=== PATIENT | female | born 1965 ===

== ENCOUNTER 2021-03-15 09:00 | Outpatient (REF) | payer OTHER, SELFPAY ==
--- NOTE | ~2021-03-15 | XR_ITS ---
EXAMINATION: CR X-RAY KNEE STANDING BILATERAL, RIGHT KNEE 2 VIEW CLINICAL INFORMATION: Knee pain. COMPARISON: None TECHNIQUE: Bilateral weightbearing AP views of the knee is as well as 2 views of the right knee were obtained. FINDINGS: Mild tricompartmental degenerative joint changes are seen in the right knee. There is no significant joint effusion. Similar mild degenerative joint changes are seen in the femoral tibial joints of the left knee. There is no acute fracture or dislocation. The soft tissues are unremarkable. XR/XR knee RT 2V IMPRESSION: Mild degenerative joint changes bilaterally suggesting osteoarthritis.
--- NOTE | ~2021-03-15 | XR_ITS ---
EXAMINATION: CR X-RAY KNEE STANDING BILATERAL, RIGHT KNEE 2 VIEW CLINICAL INFORMATION: Knee pain. COMPARISON: None TECHNIQUE: Bilateral weightbearing AP views of the knee is as well as 2 views of the right knee were obtained. FINDINGS: Mild tricompartmental degenerative joint changes are seen in the right knee. There is no significant joint effusion. Similar mild degenerative joint changes are seen in the femoral tibial joints of the left knee. There is no acute fracture or dislocation. The soft tissues are unremarkable. XR/XR knee standing BI IMPRESSION: Mild degenerative joint changes bilaterally suggesting osteoarthritis.
== END 2021-03-15 09:01 | disposition home or self-care (01) ==
LOC: HO.HOSX 09:00
PROVIDERS: Visit Provider Orthopaedic Surgery
DX: M17.0 Bilateral primary osteoarthritis of knee (principal); M21.062 Valgus deformity, not elsewhere classified, left knee; E66.9 Obesity, unspecified
CPT/HCPCS: 73560; 73565; 99202

== ENCOUNTER → 2021-06-20 08:12 | Outpatient (BNVA) | payer OTHER, SELFPAY | PROVIDERS: Visit Provider Orthopaedic Surgery | DX: M17.11 Unilateral primary osteoarthritis, right knee (principal) | CPT/HCPCS: 99212 ==

== ENCOUNTER → 2021-08-12 08:58 | Outpatient (BNVA) | payer OTHER, SELFPAY | PROVIDERS: Visit Provider Orthopaedic Surgery ==

== ENCOUNTER → 2021-09-12 13:47 | Outpatient (BNVA) | payer OTHER, SELFPAY | PROVIDERS: PCP Internal Medicine; Visit Provider Physician Assistant | DX: M17.11 Unilateral primary osteoarthritis, right knee (principal) | CPT/HCPCS: 99212 ==

== ENCOUNTER 2021-09-17 10:31 | Inpatient (IN) | payer OTHER, SELFPAY ==
[2021-09-05 12:25] VITALS: BMI 34.8
[2021-09-05 12:33] VITALS: BP 124/74; PULSE 90; RESP 20; O2SAT 97
--- NOTE | 2021-09-05 12:47 | P.CONAN_ITS ---
Documented by User: Lily Howard NP 09/16/21 09:42 HPI - Anesthesia Eval Consult details Narrative: 56yo F for Right Total Knee Replacement In person DOMINGO Koroma) for appt PCP cleared PMF[facility] Active Problems Active Problems: All Active Problems (Updated 09/04/21 @ 09:47 by Cristal Alvarenga, RN) Primary localized osteoarthritis of right knee (Acute) Past Medical History Medical History (Updated 09/04/21 @ 09:47 by Cristal Alvarenga, RN) Anxiety and depression Arthritis Bipolar 1 disorder COVID-19 vaccine series completed Fibromyalgia High cholesterol Hypothyroidism Family History Family history of problems with anesthesia: No (Son wakes agitated. Patient never has had issue) Surgical History Surgical History (Updated 09/04/21 @ 09:46 by Cristal Alvarenga RN) History of arthroscopy of right knee History of bariatric surgery History of bunionectomy of both great toes History of right oophorectomy History of shoulder surgery Hx of hysterectomy History of Problems with Anesthesia: No Social History Social History Are you a primary resident care manager to a significant other at home: No Do you presently have visiting nurse or other home services: No Patient Tobacco Use Status: Never used Tobacco Use of substances other than those prescribed or required for medical reasons: No Have you been hit, kicked, punched, or otherwise hurt by someone within the past year? If so, by whom?: No Are you DNR?: No Advance Directives: No Advance Directives Information Provided: No (Given to patient today- States has one at home- Advised to bring in) Advance Directives on File: No Recently lost weight without trying: No How much weight loss: 34pounds or more Eating poorly because of decreased appetite: No Nutrition screen score: 4 Nutrition Risks: No Nutritional Risk Patient : No Current occupational status: disabled Current occupation: right handed Narrative Narrative: No recent illness No CP/SOB with walking. Activity limited to pain Meds Allergies Allergy/AdvReac Type Severity Reaction Status Date / Time Penicillins [PCN] Allergy Unknown RASH, Verified 09/12/21 14:01 ITCHINESS oxycodone [From Percocet] Allergy vomiting Verified 09/12/21 14:01 Home Medications Medication Instructions Recorded Confirmed Last Taken Type gabapentin 100 mg capsule 100 mg PO DAILY 03/15/21 09/05/21 Unknown History amitriptyline 25 mg tablet 50 mg PO BEDTIME 09/04/21 09/04/21 Unknown History aripiprazole 10 mg tablet 1 tab PO DAILY 09/04/21 09/04/21 Unknown History lamotrigine 150 mg tablet 1 tab PO BEDTIME 09/04/21 09/04/21 Unknown History levothyroxine 50 mcg tablet 1 tab PO DAILY 09/04/21 09/04/21 Unknown History pravastatin 40 mg tablet 1 tab PO DAILY 09/04/21 09/04/21 Unknown History trazodone 50 mg tablet 1 tab PO BEDTIME PRN 09/04/21 09/04/21 Unknown History ursodiol 300 mg capsule 1 cap PO BID 09/04/21 09/04/21 Unknown History Exam Exam Date and Time: September 05, 2021 1247 Height,Weight and Vital Signs: Height 5 ft 6 in Weight 97.976 kg Last Vital Signs Pulse 90 09/05/21 12:33 Resp 20 09/05/21 12:33 BP 124/74 09/05/21 12:33 Pulse Ox 97 09/05/21 12:33 Pertinent Lab Results Pertinent Lab Results: 07/2021 BMP and CBC WNL (outside facility) Narrative Narrative: EKG 07/2021 NSR @ 74 Cannot r/o anterior infarct, age undetermined Unchanged per PCP clearance Airway Mallampati Class: I TM Dist: >3cm Neck ROM: Full Partial: Upper Loose/Missing/Broken Teeth: No Heart: RRR Lungs: CTAB Assessment and Plan Assessment Anesthesia Assessment: Anesthesia Plan Discussed and PAT Visit Final Anesthetic Review Family History of Problems with Anesthesia: No (Son wakes agitated. Patient never has had issue) History of Problems with Anesthesia: No Documented by User: Jeevan Mendez MD 09/17/21 11:21 [facility] Past Medical History Medical History (Updated 09/04/21 @ 09:47 by Cristal Alvarenga RN) Anxiety and depression Arthritis Bipolar 1 disorder COVID-19 vaccine series completed Fibromyalgia High cholesterol Hypothyroidism Surgical History Surgical History (Updated 09/04/21 @ 09:46 by Cristal Alvarenga RN) History of arthroscopy of right knee History of bariatric surgery History of bunionectomy of both great toes History of right oophorectomy History of shoulder surgery Hx of hysterectomy Social History Social History Are you a primary resident care manager to a significant other at home: No Do you presently have visiting nurse or other home services: No Patient Tobacco Use Status: Never used Tobacco Use of substances other than those prescribed or required for medical reasons: No Have you been hit, kicked, punched, or otherwise hurt by someone within the past year? If so, by whom?: No Are you DNR?: No Advance Directives: No Advance Directives Information Provided: No (Given to patient today- States has one at home- Advised to bring in) Advance Directives on File: No Recently lost weight without trying: No How much weight loss: 34pounds or more Eating poorly because of decreased appetite: No Nutrition screen score: 4 Nutrition Risks: No Nutritional Risk Patient : No Current occupational status: disabled Current occupation: right handed Meds Allergies Allergy/AdvReac Type Severity Reaction Status Date / Time Penicillins [PCN] Allergy Unknown RASH, Verified 09/12/21 14:01 ITCHINESS oxycodone [From Percocet] Allergy vomiting Verified 09/12/21 14:01 Home Medications Medication Instructions Recorded Confirmed Last Taken Type gabapentin 100 mg capsule 100 mg PO DAILY 03/15/21 09/05/21 Unknown History amitriptyline 25 mg tablet 50 mg PO BEDTIME 09/04/21 09/04/21 Unknown History aripiprazole 10 mg tablet 1 tab PO DAILY 09/04/21 09/04/21 Unknown History lamotrigine 150 mg tablet 1 tab PO BEDTIME 09/04/21 09/04/21 Unknown History levothyroxine 50 mcg tablet 1 tab PO DAILY 09/04/21 09/04/21 Unknown History pravastatin 40 mg tablet 1 tab PO DAILY 09/04/21 09/04/21 Unknown History trazodone 50 mg tablet 1 tab PO BEDTIME PRN 09/04/21 09/04/21 Unknown History ursodiol 300 mg capsule 1 cap PO BID 09/04/21 09/04/21 Unknown History Exam Airway Partial: Upper (Bridge) Lungs: CTAB Assessment and Plan Final Anesthetic Review NPO: Yes ASA Class: II Final Preanesthetic Review: No Changes in Pt Med Stat, Meds/Allgs Chart Reviewed, Consent Obtained/Reviewed and Anes Risks/Benef Reviewed Patient Risk: Intermediate Procedure Risk: Intermediate Anesthetic Plan Anesthetic Plan: MAC:, Spinal and Regional Block Disposition: Standard PACU
[2021-09-05 15:01] LABS: MRSA Nasal PCR NEGATIVE (Negative); SA Nasal PCR NEGATIVE (Negative)
[2021-09-17] VITALS (10 sets, daily range): BP systolic 111–149; BP diastolic 62–89; PULSE 61–88; RESP 16–18; TEMP 36.3–36.4; O2SAT 94–100
--- NOTE | ~2021-09-17 | XR_ITS ---
EXAMINATION: XR KNEE, RIGHT CLINICAL INFORMATION: TKA right knee. COMPARISON: None TECHNIQUE: Four views of the right knee. FINDINGS: There is total right knee arthroplasty with prosthetic components in satisfactory alignment. Immediate postoperative changes are noted noted. The soft tissues are normal. XR/XR knee RT 2V IMPRESSION: Status post total right knee arthroplasty with prosthetic components in satisfactory alignment and immediate postoperative changes noted..
[2021-09-17 10:54] LABS: COVID-19 Test Negative (Negative)
[2021-09-17] MEDS: Lactated Ringers 1,000 ML 100 ML IVCONT (11:05)
--- NOTE | 2021-09-17 11:46 | MHC.SHP ---
Pre-Procedural Eval Section A Date of Service: 09/17/21 The patient is an INPATIENT: No Changes since office visit: Yes Patient answered all questions; No Cold of Flu in the past 2 weeks, No New Medical Problems and No Changes in Medication The History & Physical has been completed within 30 days and I have reviewed it.: Yes Section B Chief Complaint: RT TKA Allergies: Allergies Allergy/AdvReac Type Severity Reaction Status Date / Time Penicillins [PCN] Allergy Unknown RASH, Verified 09/12/21 14:01 ITCHINESS oxycodone [From Percocet] Allergy vomiting Verified 09/12/21 14:01 Plan I have reviewed the history and physical and performed a pertinent physical examination on my patient. No changes have occurred unless specified.
--- NOTE | 2021-09-17 13:58 | P.BOP_ITS ---
Brief Operative Note Date of Service: 09/17/21 Pre-op diagnosis: right knee OA Post-op diagnosis: same Procedure: Right TKA Implants: [employer] triathalon press fit cruciate retaining 01/24/10 Surgeon: Tony Marroquin MD Anesthesia: regional and spinal Was an Resident Care Aid used for this Procedure?: Yes Resident Care Aid: Ayanna Simpson Estimated blood loss (mL): 200 IV fluids (mL): 1,000 Pathology: other Condition: stable Disposition: PACU
--- NOTE | 2021-09-17 14:00 | W.PM.OPN ---
Operative Note Operative Note Date of Service: 09/17/21 Narrative: Pre-op diagnosis: right knee OA Post-op diagnosis: same Procedure: Right TKA Implants: [place] triathalon press fit cruciate retaining 01/24/10 Surgeon: Tony Marroquin MD Anesthesia: regional and spinal Was an Investment Banking Analyst used for this Procedure?: Yes Investment Banking Analyst: Ayanna Simpson Estimated blood loss (mL): 200 IV fluids (mL): 1,000 Pathology: other Condition: stable Disposition: PACU Procedure in detail: Patient was brought to the operating room and prepped and draped in standard sterile fashion. A time-out was called to identify proper site proper procedure proper surgeon IV antibiotics were administered. 1 g of IV tranexamic acid was also administered. I began by making a midline incision to the retinaculum and performed a medial parapatellar arthrotomy. The patella was translated laterally and the knee was flexed up. The lateral tibial plateau and medial and lateral femoral condyle were arthritic with G3/4 schanges throughout. I performed a small medial peel and resected the infrapatellar fat pad. [place]'s line was then used to drill my intramedullary femoral guide and my distal femur cut was made in 5 degrees of valgus. I then measured a # _3__ femur and placed my cutting guide and made my anterior posterior and chamfer cuts protecting the soft tissues at all times. Once I was satisfied with my cut I turned my attention to the tibia. I removed the meniscus and , using an external cutting guide, in line with the tibial crest and the third ray, I made my distal tibial cut ( 3 deg slope and 9mm of the medial side) while protecting the PCL the posterior soft tissues at all times. An extension block was used to confirm appropriate amount of bony resection. I then sized a #__4_ tibia and once I was satisfied with the tibial coverage I placed my trial and with the trial femur in place took the knee through range of motion. I was satisfied with the extension and flexion as well as the stability at 0, 30 and 90 degrees. I then turned my attention to the patella where I removed 1 cm from the undersurface of the patella and then trialed a __32a____ patellar button. Again the knee was taken through range of motion I was satisfied with the tracking. I then returned to the femur and drilled my femoral lug holes and prepared the tibia. A femoral bone plug was then placed and the knee was irrigated copiously. I then press fit the patella, tibia and femur in standard fashion. I trialed different inserts until I selected a #__10__ insert. The final insert was placed and a 3 minutes iodine soak with local TXA was performed. A Werewolf device ( [employer]) was used to control bleeding. The knee was then closed with a running Quill suture, a 3 0 Vicryl and tayla on the skin. Patient was then placed in sterile dressing and brought to recovery room in stable condition there were no known complications.
[2021-09-17] MEDS: Ketorolac Tromethamine 15 MG/ML VIAL IVPUSH (14:28)
[2021-09-17] MEDS: Acetaminophen 325 MG TABLET 975 MG PO (14:30)
[2021-09-17] MEDS: Dextrose 5 % and 0.45 % NaCl 1,000 ML 80 ML IVCONT (15:46)
[2021-09-17] MEDS: 0.9 % Sodium Chloride Flush 3 ML SYRINGE IVFLUSH ×2 (15:47→20:03)
--- NOTE | 2021-09-17 16:06 | PM.IMCN ---
History of Present Illness Data of Consult Service Date: 09/17/21 Requesting physician: Tony Marroquin Primary Care Provider: Lisseth Ballesteros MD HPI 56-year-old woman admitted by Orthopedic surgery and is status post right total knee arthroplasty. Patient's vital signs are stable. She has no acute medical complaints at this time. She denies nausea, vomiting, diarrhea. Medical consultation was placed Review of Systems Review of Systems: Denies any recent fever chills or decrease in appetite respiratory denies any shortness of breath coverage production cardiovascular is adjustment of any PND or edema gastrointestinal denies any dysphagia abdominal pain nausea vomiting or diarrhea genitourinary denies any dysuria frequency or hematuria musculoskeletal denies any joint pain or swelling neuropsych denies any weakness or seizures all other systems reviewed are negative [facility] Medical History (Updated 09/17/21 @ 17:29 by Shruthi Ochoa NP) Anxiety and depression Arthritis Bipolar 1 disorder COVID-19 vaccine series completed Fibromyalgia High cholesterol Hypothyroidism Pertinent family history: . Surgical History (Updated 09/04/21 @ 09:46 by Cristal Alvarenga RN) History of arthroscopy of right knee History of bariatric surgery History of bunionectomy of both great toes History of right oophorectomy History of shoulder surgery Hx of hysterectomy Social History Household Members: Spouse Housing: House Are you a primary neurocritical care physician to a significant other at home: No Do you presently have visiting nurse or other home services: No Patient Tobacco Use Status: Never used Tobacco Use of substances other than those prescribed or required for medical reasons: No Currently Displaying Signs/Symptoms of Drug Intoxication Withdrawal: No Any prior treatment program specific to substance use: No Have you been hit, kicked, punched, or otherwise hurt by someone within the past year? If so, by whom?: No Do you feel safe in your current relationship?: Yes Is there a partner from a previous relationship who is making you feel unsafe now?: No Are you DNR?: No Advance Directives: No Advance Directives Information Provided: No (Given to patient today- States has one at home- Advised to bring in) Advance Directives on File: No Do you have thoughts of harming others: None Do you have a plan to hurt others: No Plan Recently lost weight without trying: No How much weight loss: 34pounds or more Eating poorly because of decreased appetite: No Nutrition screen score: 4 Nutrition Risks: No Nutritional Risk Patient : No : No Poor oral hygiene: No Current occupational status: disabled Current occupation: right handed Meds Allergies Allergy/AdvReac Type Severity Reaction Status Date / Time Penicillins [PCN] Allergy Unknown RASH, Verified 09/12/21 14:01 ITCHINESS oxycodone [From Percocet] Allergy vomiting Verified 09/12/21 14:01 Active Medications: Current Medications Acetaminophen (Acetaminophen 325 Mg Tablet) 650 mg PO Q6H PRN PRN Reason: Pain, Mild (Pain Scale 1-3) Celecoxib (Celecoxib 200 Mg Capsule) 200 mg PO BID KRISHNA Docusate Sodium (Docusate Sodium 100 Mg Capsule) 100 mg PO BID KRISHNA Hydromorphone HCl (Hydromorphone Hcl 0.5 Mg/0.5 Ml Syringe) 0.25 mg IVPUSH Q4H PRN; Protocol PRN Reason: Pain, Severe (Pain Scale 7-10) Dextrose/Sodium Chloride (D51/2ns) 1,000 mls @ 80 mls/hr IVCONT .[id number] [facility] Last Admin: 09/17/21 15:46 Dose: 80 mls/hr Documented by: Cefazolin Sodium/Dextrose (Ancef) 2 gm in 50 mls @ 100 mls/hr IV POSTOP [facility] Ondansetron HCl (Ondansetron Hcl 4 Mg/2 Ml Vial) 4 mg IVPUSH Q8H PRN PRN Reason: Nausea and Vomiting Oxycodone HCl (Oxycodone Hcl Immed Release 5 Mg Tablet) 10 mg PO Q4H PRN PRN Reason: Pain, Moderate (Pain Scale 4-6 Oxycodone HCl (Oxycodone Hcl Er 10 Mg Tab.Er.12h) 10 mg PO BID [facility] Sodium Chloride (0.9 % Sodium Chloride Flush 3 Ml Syringe) 3 ml IVFLUSH QSHIFT [facility] Last Admin: 09/17/21 15:47 Dose: 3 ml Documented by: Home Medications Medication Instructions Recorded Confirmed Last Taken Type gabapentin 100 mg capsule 100 mg PO DAILY 03/15/21 09/05/21 Unknown History amitriptyline 25 mg tablet 50 mg PO BEDTIME 09/04/21 09/04/21 Unknown History aripiprazole 10 mg tablet 1 tab PO DAILY 09/04/21 09/04/21 Unknown History lamotrigine 150 mg tablet 1 tab PO BEDTIME 09/04/21 09/04/21 Unknown History levothyroxine 50 mcg tablet 1 tab PO DAILY 09/04/21 09/04/21 Unknown History pravastatin 40 mg tablet 1 tab PO DAILY 09/04/21 09/04/21 Unknown History trazodone 50 mg tablet 1 tab PO BEDTIME PRN 09/04/21 09/04/21 Unknown History ursodiol 300 mg capsule 1 cap PO BID 09/04/21 09/04/21 Unknown History Physical Exam Vital Signs and Narrative: Vital Signs: Last Vital Signs Temp 97.5 F 09/17/21 15:43 Pulse 67 09/17/21 15:43 Resp 17 09/17/21 15:43 BP 134/76 09/17/21 15:43 Pulse Ox 99 09/17/21 15:43 Body Mass Index 34.8 Appearing in no acute distress head is normocephalic atraumatic eyes pupils are PERRLA sclera is anicteric mouth throat mucous membranes are intact and moist neck is supple no lymphadenopathy, no JVD noted lung sounds are clear to auscultation heart regular rate rhythm, clear S1, S2 positive bowel sounds, abdomen is soft, nontender neuro patient is alert x3, no focal deficits MSK left knee surgical dressing intact, unable to visualize surgical incision Results Labs Labs: Laboratory Results - last 24 hr 09/17/21 10:25 COVID-19 ([facility]) Negative COVID-19 Clin Com See Note Imaging Radiologist's Impressions: Impressions Knee X-Ray 09/17/21 14:18 IMPRESSION: Status post total right knee arthroplasty with prosthetic components in satisfactory alignment and immediate postoperative changes noted.. Assessment and Plan (1) Primary localized osteoarthritis of right knee: Status: Acute (2) Mental health disorder: Status: Acute (3) Hypothyroidism: Status: Acute 56 year old women admitted by orthopedic surgery Right knee arthroplasty management as per surgical team pain management Hypothyroidism Continue levothyroxine Mental health Continue home medications DVT prophylaxis with mechanical compression boots as per admitting provider Attending Dr. Ghosh
[2021-09-17] MEDS: Celecoxib 200 MG CAPSULE PO (20:03)
[2021-09-17] MEDS: oxyCODONE HCl ER 10 MG TAB.ER.12H PO (20:03)
[2021-09-17] MEDS: Docusate Sodium 100 MG CAPSULE PO (20:03)
[2021-09-18] VITALS (9 sets, daily range): BP systolic 98–117; BP diastolic 54–87; PULSE 68–88; RESP 17–18; TEMP 36.1–36.9; O2SAT 95–100
--- NOTE | 2021-09-18 00:24 | PC.NURSE ---
09/17/21 2200 pt unable to void.bladder scanned for >999ml st. cath for 1200ml of clear yellow urine.
[2021-09-18] MEDS: Dextrose 5 % and 0.45 % NaCl 1,000 ML 80 ML IVCONT ×2 (01:51→20:06)
[2021-09-18 05:33] LABS: MANUAL DIFF FLAG NO
[2021-09-18 05:41] LABS: Basophils Percent Auto 0.1 % (0-2); Hematocrit 29.8 % (37-47); Hemoglobin 10.2 g/dl (12.0-16.0); Imm Gran Abs Auto 0.03 X10*3/uL (0.00-0.03); Imm Gran Pct Auto 0.3 % (0.0-0.4); Lymphocytes Absolute Auto 0.6 X10*3/uL (1.2-4.9); Lymphocytes Percent Auto 5.4 % (20-40); Mean Corpuscular HGB Conc 34.2 g/dl (31.0-35.0); Mean Corpuscular Hemoglobin 29.7 pg (27.0-33.0); Mean Corpuscular Volume 86.6 fL (80-98); Mean Platelet Volume 11.8 fL (9.4-12.3); Monocytes Absolute Auto 0.6 X10*3/uL (0.1-1.2); Monocytes Percent Auto 5.3 % (2-11); Neutrophils Absolute Auto 9.2 X10*3/uL (2.0-8.3); Neutrophils Percent Auto 88.9 % (45-73); Platelet Count 170 X10*3/uL (160-400); Red Blood Count 3.44 X10*6/uL (4.20-5.50); Red Cell Distribution Width 12.2 % (11.0-16.0); White Blood Count 10.4 X10*3/uL (4.8-10.8)
[2021-09-18 06:06] LABS: Anion Gap 9 (12-20); Blood Urea Nitrogen 12 mg/dL (9-16); Calcium 8.7 mg/dL (8.4-10.2); Carbon Dioxide 26 mmol/L (22-29); Chloride 108 mmol/L (96-108); Creatinine Clr Calc Pharmacy 122.4; Estimated Glomerular Filt Rate > 60; Glucose Fasting 133 mg/dL (60-99); Sodium 139 mmol/L (135-145)
--- NOTE | 2021-09-18 06:38 | PC.NURSE ---
pt unable to void.bladder scanned for 388ml.st.cath for 350ml yellow urine.
[2021-09-18] MEDS: Celecoxib 200 MG CAPSULE PO ×2 (08:06→20:07)
[2021-09-18] MEDS: oxyCODONE HCl ER 10 MG TAB.ER.12H PO ×2 (08:07→20:07)
[2021-09-18] MEDS: Docusate Sodium 100 MG CAPSULE PO ×2 (08:07→20:07)
--- NOTE | 2021-09-18 08:23 | P.PNIM_ITS ---
Progress Note: A&P (1) S/P total knee arthroplasty: Status: Acute (2) Hypothyroidism: Status: Acute (3) Mental health disorder: Status: Acute Assessment and Plan: 56 year old women admitted by orthopedic surgery Right knee arthroplasty management as per surgical team pain management Hypothyroidism Continue levothyroxine Mental health Continue home medications DVT prophylaxis with mechanical compression boots as per admitting provider Attending Dr. Cho Will sign off as patient has n acute medical issues Subjective Subjective Date of Service: 09/18/21 Review of Systems Follow up consult, RTKR Feeling good today oob to chair Physical Exam Vital Signs: Vital Signs: Last Vital Signs Temp 98.3 F 09/18/21 07:35 Pulse 81 09/18/21 07:35 Resp 18 09/18/21 07:35 BP 112/65 09/18/21 07:35 Pulse Ox 100 09/18/21 07:35 Body Mass Index 34.8 Appearing in no acute distress lung sounds are clear to auscultation heart regular rate rhythm, clear S1, S2 positive bowel sounds, abdomen is soft, nontender neuro patient is alert x3, no focal deficits MSK right knee surgical dressing intact, surgical wound not visualized Objective Data Current Medications Acetaminophen (Acetaminophen 325 Mg Tablet) 650 mg PO Q6H PRN PRN Reason: Pain, Mild (Pain Scale 1-3) Aspirin (Aspirin 325 Mg Tablet) 325 mg PO BID@1100,2300 [facility] Celecoxib (Celecoxib 200 Mg Capsule) 200 mg PO BID [facility] Last Admin: 09/18/21 08:06 Dose: 200 mg Documented by: Docusate Sodium (Docusate Sodium 100 Mg Capsule) 100 mg PO BID [facility] Last Admin: 09/18/21 08:07 Dose: 100 mg Documented by: Hydromorphone HCl (Hydromorphone Hcl 0.5 Mg/0.5 Ml Syringe) 0.25 mg IVPUSH Q4H PRN; Protocol PRN Reason: Pain, Severe (Pain Scale 7-10) Dextrose/Sodium Chloride (D51/2ns) 1,000 mls @ 80 mls/hr IVCONT .[id number] [facility] Last Admin: 09/18/21 01:51 Dose: 80 mls/hr Documented by: Cefazolin Sodium/Dextrose (Ancef) 2 gm in 50 mls @ 100 mls/hr IV POSTOP [facility] Ondansetron HCl (Ondansetron Hcl 4 Mg/2 Ml Vial) 4 mg IVPUSH Q8H PRN PRN Reason: Nausea and Vomiting Oxycodone HCl (Oxycodone Hcl Immed Release 5 Mg Tablet) 10 mg PO Q4H PRN PRN Reason: Pain, Moderate (Pain Scale 4-6 Oxycodone HCl (Oxycodone Hcl Er 10 Mg Tab.Er.12h) 10 mg PO BID [facility] Last Admin: 09/18/21 08:07 Dose: 10 mg Documented by: Sodium Chloride (0.9 % Sodium Chloride Flush 3 Ml Syringe) 3 ml IVFLUSH QSHIFT [facility] Last Admin: 09/18/21 08:07 Dose: Not Given Documented by: Labs CBC & Chem 7: 09/18/21 05:17 09/18/21 05:17 Labs: Laboratory Results - last 24 hr 09/17/21 09/18/21 09/18/21 10:25 05:17 05:17 MCV 86.6 MCH 29.7 MCHC 34.2 RDW 12.2 Plt Count 170 MPV 11.8 Immature Gran % (Auto) 0.3 Neut % (Auto) 88.9 H Lymph % (Auto) 5.4 L Rolette % (Auto) 5.3 Eos % (Auto) 0.0 Baso % (Auto) 0.1 Lymph # (Auto) 0.6 L [place] # (Auto) 0.6 Eos # (Auto) 0.0 Baso # (Auto) 0.0 Abs Immat Gran (auto) 0.03 Absolute Neuts (auto) 9.2 H Absolute Nucleated RBC 0.000 Nucleated RBC % (auto) 0.0 Anion Gap 9 L Estim Creat Clear Calc 122.4 Estimated GFR > 60 Fasting Glucose 133 H Calcium 8.7 COVID-19 ([facility]) Negative COVID-19 Clin Com See Note Quality Stroke Does the patient have a stroke diagnosis?: No VTE Prior VTE?: No VTE Risk Level:: Medical - moderate - high VTE Device Contraindication: Treatment Not Indicated VTE Drug Contraindication: N/A - Med Ordered
--- NOTE | 2021-09-18 10:21 | PM.PNORT ---
Subjective Subjective Date of Service: 09/18/21 Interval history: POD1 s/p RTKA. Patient is resting comfortably in bed. Pain is well managed. No overnight events. No additional complaints. Physical Exam Vital Signs: Vital Signs: Last Vital Signs Temp 98.3 F 09/18/21 07:35 Pulse 81 09/18/21 09:30 Resp 18 09/18/21 07:35 BP 112/65 09/18/21 09:30 Pulse Ox 100 09/18/21 09:30 Body Mass Index 34.8 Const: General: cooperative, healthy appearing and no acute distress Resp: Effort & Inspection: normal respiratory effort and able to speak in complete sentences Cardio: Rate: regular rate Peripheral pulses: Peripheral pulses 2+ throughout GI: Palpation (GI): Soft to palpation Skin: Lesions: no lesions Rashes: no rashes Extrem: Other: right knee no ecchymosis redness, or drainage. Aquacel is clean, dry, and intact. NVI. Procedures Date of Service Date of Service: 09/18/21 Progress Note: A&P Assessment and plan (1) S/P total knee arthroplasty: Status: Acute Assessment and Plan: Continue pain mgmnt Begin ASA for dvt ppx begin PT for RTKA Dispo planning-Pending PT eval, pain mgmnt Fall Risk Details Current Medications: Current Medications Acetaminophen (Acetaminophen 325 Mg Tablet) 650 mg PO Q6H PRN PRN Reason: Pain, Mild (Pain Scale 1-3) Aspirin (Aspirin 325 Mg Tablet) 325 mg PO BID@1100,2300 [facility] Celecoxib (Celecoxib 200 Mg Capsule) 200 mg PO BID [facility] Last Admin: 09/18/21 08:06 Dose: 200 mg Documented by: Docusate Sodium (Docusate Sodium 100 Mg Capsule) 100 mg PO BID [facility] Last Admin: 09/18/21 08:07 Dose: 100 mg Documented by: Hydromorphone HCl (Hydromorphone Hcl 0.5 Mg/0.5 Ml Syringe) 0.25 mg IVPUSH Q4H PRN; Protocol PRN Reason: Pain, Severe (Pain Scale 7-10) Dextrose/Sodium Chloride (D51/2ns) 1,000 mls @ 80 mls/hr IVCONT .[id number] [facility] Last Admin: 09/18/21 01:51 Dose: 80 mls/hr Documented by: Cefazolin Sodium/Dextrose (Ancef) 2 gm in 50 mls @ 100 mls/hr IV POSTOP [facility] Ondansetron HCl (Ondansetron Hcl 4 Mg/2 Ml Vial) 4 mg IVPUSH Q8H PRN PRN Reason: Nausea and Vomiting Oxycodone HCl (Oxycodone Hcl Immed Release 5 Mg Tablet) 10 mg PO Q4H PRN PRN Reason: Pain, Moderate (Pain Scale 4-6 Oxycodone HCl (Oxycodone Hcl Er 10 Mg Tab.Er.12h) 10 mg PO BID [facility] Last Admin: 09/18/21 08:07 Dose: 10 mg Documented by: Sodium Chloride (0.9 % Sodium Chloride Flush 3 Ml Syringe) 3 ml IVFLUSH QSHIFT [facility] Last Admin: 09/18/21 08:07 Dose: Not Given Documented by: Time Spent With Patient Time: Total time spent is greater than 50% in coordination of care (as documented) at patient's floor/unit and/or counseling patient: Time with patient: less than 15 minutes Quality Stroke Does the patient have a stroke diagnosis?: No VTE Prior VTE?: No VTE Risk Level:: Surgical - very high VTE Device Contraindication: N/A - Device Ordered VTE Drug Contraindication: N/A - Med Ordered
--- NOTE | 2021-09-18 11:22 | MHC.CM.PN ---
CM MET WITH PT WITH THE ASSISTANCE OF [facility] PT REPORTS SHE LIVES AT HOME WITH HER AND DAUGHTER PT REPORTS DIRECTOR OF TRAUMA SHE WAS INDEPENDENT WITH ALL CARE HOWEVER SHE DID ATTEMPT TO GET A ELECTRICAL LINE WORKER IN PREPARATION FOR THIS PROCEDURE. CM INFORMED HER SHE SHOULD DISCUSS THIS WITH HER PCP PT REPORTS SHE HAS A WALKER AND GRAB BARS AT HOME PT CONFIRMS HER PCP IS [facility] MOLINA PT COMPLETED A HCP TODAY NAMING HER S/O, SHARITA MARIO ([phone]) AND HER DAUGHTER, JESSE ORR ([phone]) HER PRIMARY AND ALTERNATE AGENTS RESPECTIVELY. PT IS AWARE SHE WILL LIKELY NEED HOME PHYSICAL THERAPY AT [place] AND REQUESTS A REFERRAL TO [facility] CURRENT [place] PLAN IS HOME WITH [facility] FAMILY TO TRANSPORT
--- NOTE | 2021-09-18 12:26 | HO.POSTANES ---
Post Anesthesia Evaluation Post Anesthesia Evaluation Vital Signs: Vital Signs Temp Pulse Resp BP Pulse Ox 09/18/21 11:37 98.4 F 79 17 114/87 99 09/18/21 09:30 81 112/65 100 09/18/21 07:35 98.3 F 81 18 112/65 100 09/18/21 03:51 97 F 74 17 116/72 97 Anesthesia: Spinal and Nerve Block Mental Status: Awake Pain Control: Satisfactory Nausea/Vomiting: None Hydration: Adequate Anesthesia-Related Issues: No Anes. Related Issues
--- NOTE | 2021-09-18 14:00 | MHC.CLN ---
NUTRITION PATIENT REPORTS SIGNIFICANT PLANNED WEIGHT LOSS X 6 MONTHS, -70#. STATED THAT HAD GASTRIC BYPASS SURGERY 6 MONTHS AGO AT [facility]. CURRENT DIET=REGULAR. FOLLOWS REGULAR DIET, BUT EATS SMALL PORTIONS. WOULD LIKE TO CONTINUE REGULAR DIET AND ABLE TO MAKE OWN SELECTIONS. ADDED ENSURE HIGH PROTEIN TID PER CONVERSATION WITH PATIENT THAT TAKES PROTEIN SHAKE TID AT HOME. ENSURE MAX TID PROVIDES 450 KCAL, 90 G PROTEIN.
[2021-09-18] MEDS: Aspirin 325 MG TABLET PO ×2 (14:35→23:45)
[2021-09-18] MEDS: 0.9 % Sodium Chloride Flush 3 ML SYRINGE IVFLUSH (15:27)
--- NOTE | 2021-09-18 20:01 | P.DS_ITS ---
DS: Providers Provider Date of Service: 09/19/21 Date of admission: 09/17/21 10:31 Primary care physician: Lisseth Ballesteros MD Consults: 09/17/21 15:31 Consult to Hospitalist Routine Consulting Provider: Hospitalist Reason For Exam: medical management DS: Diagnosis Discharge Diagnosis (1) S/P total knee arthroplasty: Status: Acute DS: Summary Hospital Course Hospital Course: The patient underwent a successful Right total knee arthroplasty, was transferred to PACU and then to the floor to recover. During their stay, their vitals were stable, afebrile at 98.0 . Labs were unremarkable, H/H 8.8/26.7. POD 1 she was started on ASA for DVT ppx, they also received PT services twice a day. Prior to discharge, their dressing was change, incision clean dry and intact, new Aquacel dressing applied and the plan was to be discharged home with vna Time Spent with Patient Time attestation: Total time spent providing and/or coordinating discharge services: Discharge coordination time: Less than 30 minutes Quality: Stroke Does the patient have a stroke diagnosis?: No Physical Exam Vital Signs: Vital Signs: Last Vital Signs Temp 98 F 09/18/21 19:51 Pulse 75 09/18/21 19:51 Resp 18 09/18/21 19:51 BP 98/54 L 09/18/21 19:51 Pulse Ox 100 09/18/21 19:51 Body Mass Index 34.8 Const: General: cooperative, healthy appearing and no acute distress Resp: Effort & Inspection: normal respiratory effort and able to speak in complete sentences Cardio: Rate: regular rate Peripheral pulses: Peripheral pulses 2+ throughout GI: Palpation (GI): Soft to palpation Skin: General skin exam: no rashes or lesions noted Extrem: Other: incision clean dry and intact. [place] intact. No erythema or joint effusion. Calf supple nontender. Neurovascularly intact. DS: Data Data Completed and Pending Pending studies at discharge: Pending at discharge 09/17/21 13:33 Surgical [PTH] Routine Labs on day of discharge: Laboratory Results - last 24 hr 09/18/21 09/18/21 05:17 05:17 WBC 10.4 RBC 3.44 L Hgb 10.2 L Hct 29.8 L MCV 86.6 MCH 29.7 MCHC 34.2 RDW 12.2 Plt Count 170 MPV 11.8 Immature Gran % (Auto) 0.3 Neut % (Auto) 88.9 H Lymph % (Auto) 5.4 L [place] % (Auto) 5.3 Eos % (Auto) 0.0 Baso % (Auto) 0.1 Lymph # (Auto) 0.6 L [place] # (Auto) 0.6 Eos # (Auto) 0.0 Baso # (Auto) 0.0 Abs Immat Gran (auto) 0.03 Absolute Neuts (auto) 9.2 H Absolute Nucleated RBC 0.000 Nucleated RBC % (auto) 0.0 Sodium 139 Potassium 4.0 Chloride 108 Carbon Dioxide 26 Anion Gap 9 L BUN 12 Creatinine 0.62 Estim Creat Clear Calc 122.4 Estimated GFR > 60 Fasting Glucose 133 H Calcium 8.7 Discharge Plan Discharge Patient Disposition: Home Health Service Discharge Diagnosis: s/p RT TKA Referrals: Ayanna Simpson PA-C [Physician [facility]] - 2 Weeks (10/03/21 12:30 [facility] Ayanna Simpson PA-C) Discharge Medications: New docusate sodium 100 mg Capsule 100 mg PO BID 14 Days Qty: 28 RF: 0 oxycodone 10 mg tablet 10 mg PO Q4H PRN (Reason: Pain, Moderate (Pain Scale 4-6) 7 Days Qty: 42 RF: 0 acetaminophen 325 mg Tablet 650 mg PO Q6H PRN (Reason: Pain, Mild (Pain Scale 1-3)) 30 Days Qty: 240 RF: 0 aspirin 325 mg Tablet 325 mg PO BID@1100,2300 42 Days Qty: 84 RF: 0 Continued (DME) [facility] See Rx Instructions .MEDSUPPLY Qty: 1 RF: 0 lamotrigine 150 mg tablet 1 tab PO BEDTIME RF: 0 trazodone 50 mg tablet 1 tab PO BEDTIME PRN (Reason: Sleep) RF: 0 pravastatin 40 mg tablet 1 tab PO DAILY RF: 0 amitriptyline 25 mg tablet 50 mg PO BEDTIME RF: 0 levothyroxine 50 mcg tablet 1 tab PO DAILY RF: 0 ursodiol 300 mg capsule 1 cap PO BID RF: 0 aripiprazole 10 mg tablet 1 tab PO DAILY RF: 0 (DME) [facility] See Rx Instructions .Route .MEDSUPPLY Qty: 1 RF: 0 Discharge Orders: Discharge Order (Routine); Ordered 09/19/21 Ordered By: Ayanna Simpson Diet: regular diet Activity on Discharge: Use cane or walker Stand Alone Forms: Patient Portal Discharge page Care Plan Goals: Restore function of joint Health Concerns: none Plan of Treatment: * Physical Therapy for Total knee arthroplasty: gait training, ROM 0-12, quad strength * Limit stair climbing * No showering, no tub bath-keep dressing clean, dry and intact * No driving x6 weeks * Continue Aspirin twice a day x 4 weeks * Follow up with [facility] in 2 weeks Assessment: Physical Therapy Pain management DVT prophylaxis
--- NOTE | 2021-09-18 20:02 | W.MHC.F2F ---
Service Date Service Date: 09/18/21 Encounter Date of encounter: 09/18/21 Reasons for Services Reason for physical therapy: home safety and mobility, therapeutic exercises, restore joint function, gait/transfer training and ADL training Reason for occupational therapy: home safety and mobility, therapeutic exercises, restore joint function, gait/transfer training and ADL training MD Overseeing Care: Tony Marroquin Homebound: Leaving the home is medically contraindicated at this time without the asist of a device and/or another person due th the listed conditions above and below. Reason homebound: unsteady gait / fall risk, pain with ambulation, pain with transfers, poor balance / fall risk and unable to drive Homebound supporting statement: Pt. is considered home bound due to recent surgery. Unable to drive, poor balance, poor gait mechanics. Certification: Based on the above findings, I certify that this patient is confined to the home and needs intermittent long-term care, physical therapy and/or speech therapy, or continues to need occupational therapy. The patient is under my care, and I have initiated the establishment of the plan of care. The patient will be followed by a physician who will periodically review the plan of care.
[2021-09-19 03:57] VITALS: BP 108/56; PULSE 89; RESP 18; TEMP 36.8; O2SAT 92
[2021-09-19 05:20] LABS: MANUAL DIFF FLAG NO
[2021-09-19 05:23] LABS: Basophils Percent Auto 0.2 % (0-2); Eosinophils Percent Auto 0.6 % (0-4); Hematocrit 26.7 % (37-47); Hemoglobin 8.8 g/dl (12.0-16.0); Imm Gran Abs Auto 0.02 X10*3/uL (0.00-0.03); Imm Gran Pct Auto 0.4 % (0.0-0.4); Lymphocytes Absolute Auto 1.5 X10*3/uL (1.2-4.9); Mean Corpuscular Hemoglobin 29.5 pg (27.0-33.0); Mean Corpuscular Volume 89.6 fL (80-98); Monocytes Absolute Auto 0.4 X10*3/uL (0.1-1.2); Monocytes Percent Auto 8.3 % (2-11); Neutrophils Absolute Auto 3.1 X10*3/uL (2.0-8.3); Neutrophils Percent Auto 61.5 % (45-73); Platelet Count 137 X10*3/uL (160-400); Red Blood Count 2.98 X10*6/uL (4.20-5.50); Red Cell Distribution Width 12.7 % (11.0-16.0)
[2021-09-19 05:47] LABS: Anion Gap 9 (12-20); Blood Urea Nitrogen 10 mg/dL (9-16); Calcium 8.2 mg/dL (8.4-10.2); Carbon Dioxide 30 mmol/L (22-29); Chloride 107 mmol/L (96-108); Creatinine Clr Calc Pharmacy 111.6; Estimated Glomerular Filt Rate > 60; Glucose Fasting 91 mg/dL (60-99); Sodium 142 mmol/L (135-145)
[2021-09-19 07:53] VITALS: BP 112/67; PULSE 85; RESP 18; TEMP 36.7; O2SAT 100
--- NOTE | 2021-09-19 08:34 | MHC.CM.PN ---
PT DISCHARGING HOME W/[facility] FOR HOME PT W/OUPT FOLLOW-UP W/SURGEON, FAMILY FOR TRANSPORT
[2021-09-19] MEDS: 0.9 % Sodium Chloride Flush 3 ML SYRINGE IVFLUSH (08:58)
[2021-09-19] MEDS: Celecoxib 200 MG CAPSULE PO (08:58)
[2021-09-19] MEDS: Docusate Sodium 100 MG CAPSULE PO (08:59)
[2021-09-19] MEDS: oxyCODONE HCl ER 10 MG TAB.ER.12H PO (08:59)
[2021-09-19 09:32] VITALS: BP 112/67; PULSE 85; O2SAT 100
[2021-09-19] MEDS: Aspirin 325 MG TABLET PO (11:42)
[2021-09-19 11:57] VITALS: BP 115/68; PULSE 81; RESP 18; TEMP 36.6; O2SAT 98
== END 2021-09-19 13:50 | disposition home health service (06) | DRG 302 ==
LOC: HO.SSSA 10:38 → HO.S3 14:04
PROVIDERS: Physician Assistant; Admitting Provider Orthopaedic Surgery; PCP Internal Medicine; Visit Provider Orthopaedic Surgery
PROC: 0SRC0JA Replacement of Right Knee Joint with Synthetic Substitute, Uncemented, Open Approach (ICD-10-PCS; CPT 27447; principal; 2021-09-17 11:50)
DX: M17.11 Unilateral primary osteoarthritis, right knee (principal); E03.9 Hypothyroidism, unspecified; M79.7 Fibromyalgia; F31.9 Bipolar disorder, unspecified; Z20.822 Contact with and (suspected) exposure to COVID-19; Z79.890 Hormone replacement therapy; Z88.0 Allergy status to penicillin; Z88.5 Allergy status to narcotic agent; Z79.899 Other long term (current) drug therapy
CPT/HCPCS: 36415; 73560; 80048; 85025; 86850; 86900; 86901; 87635; 87640; 87641; 88305; 88311; 90686; 97110; 97116; 97161; C1776; J0690; J1100; J1885; J2250; J2405

== ENCOUNTER → 2021-10-03 12:16 | Outpatient (BNVA) | payer OTHER, SELFPAY | PROVIDERS: PCP Internal Medicine; Visit Provider Physician Assistant | DX: Z47.1 Aftercare following joint replacement surgery (principal); Z96.659 Presence of unspecified artificial knee joint | CPT/HCPCS: 99212 ==

== ENCOUNTER → 2021-10-31 10:23 | Outpatient (BNVA) | payer OTHER, SELFPAY | PROVIDERS: PCP Internal Medicine; Visit Provider Physician Assistant | DX: Z47.1 Aftercare following joint replacement surgery (principal); Z96.659 Presence of unspecified artificial knee joint | CPT/HCPCS: 99212 ==

== ENCOUNTER 2021-12-12 13:11 | Outpatient (REF) | payer OTHER, SELFPAY ==
--- NOTE | ~2021-12-12 | XR_ITS ---
EXAMINATION:XR knee RT 2V, XR knee standing BI CLINICAL INFORMATION: Reason for Exam M25.569 - Pain in unspecified knee COMPARISON: 09/17/2021 TECHNIQUE: Frontal and lateral views acquired FINDINGS: BONES: No fracture or dislocation is present. JOINTS: There is total right knee replacement prosthesis device, both femoral and tibial component of which is properly positioned maintaining normal alignment's. No radiologic evidence of device loosening. Patella properly positioned. There is early advanced degenerative osteoarthritis of the left knee medial and lateral compartments. SOFT TISSUE: There is no significant knee joint effusion. XR/XR knee standing BI IMPRESSION: Status post right total knee replacement. The prosthesis is properly positioned, no radiographic evidence of device loosening. Early advanced degenerative osteoarthritis left knee..
--- NOTE | ~2021-12-12 | XR_ITS ---
EXAMINATION:XR knee RT 2V, XR knee standing BI CLINICAL INFORMATION: Reason for Exam M25.569 - Pain in unspecified knee COMPARISON: 09/17/2021 TECHNIQUE: Frontal and lateral views acquired FINDINGS: BONES: No fracture or dislocation is present. JOINTS: There is total right knee replacement prosthesis device, both femoral and tibial component of which is properly positioned maintaining normal alignment's. No radiologic evidence of device loosening. Patella properly positioned. There is early advanced degenerative osteoarthritis of the left knee medial and lateral compartments. SOFT TISSUE: There is no significant knee joint effusion. XR/XR knee RT 2V IMPRESSION: Status post right total knee replacement. The prosthesis is properly positioned, no radiographic evidence of device loosening. Early advanced degenerative osteoarthritis left knee..
== END 2021-12-12 13:12 | disposition home or self-care (01) ==
LOC: HO.HOSX 13:11
PROVIDERS: PCP Internal Medicine; Visit Provider Orthopaedic Surgery
DX: Z47.1 Aftercare following joint replacement surgery (principal); Z96.651 Presence of right artificial knee joint
CPT/HCPCS: 73560; 73565; 99212

== ENCOUNTER 2022-01-23 08:38 | Outpatient (REF) | payer OTHER, SELFPAY ==
--- NOTE | ~2022-01-23 | XR_ITS ---
EXAMINATION: XR knee standing BI, XR knee RT 2V CLINICAL INFORMATION: Reason for Exam M25.569 - Pain in unspecified knee COMPARISON: 12/12/2021 TECHNIQUE: Weightbearing AP view of both knees. Lateral and sunrise views of the right knee FINDINGS: Status post right total knee arthroplasty with patellar resurfacing. Components in expected positions. No evidence of hardware failure or complication. A moderate joint effusion is again seen. Diffuse soft tissue swelling anterior to the knee also similar to prior. Moderate marginal osteophytes of the medial lateral tibiofemoral compartments on the left. XR/XR knee standing BI IMPRESSION: Stable exam. No evidence of hardware failure or complication with respect to the right total knee arthroplasty. Stable moderate right knee joint effusion.
--- NOTE | ~2022-01-23 | XR_ITS ---
EXAMINATION: XR knee standing BI, XR knee RT 2V CLINICAL INFORMATION: Reason for Exam M25.569 - Pain in unspecified knee COMPARISON: 12/12/2021 TECHNIQUE: Weightbearing AP view of both knees. Lateral and sunrise views of the right knee FINDINGS: Status post right total knee arthroplasty with patellar resurfacing. Components in expected positions. No evidence of hardware failure or complication. A moderate joint effusion is again seen. Diffuse soft tissue swelling anterior to the knee also similar to prior. Moderate marginal osteophytes of the medial lateral tibiofemoral compartments on the left. XR/XR knee RT 2V IMPRESSION: Stable exam. No evidence of hardware failure or complication with respect to the right total knee arthroplasty. Stable moderate right knee joint effusion.
== END 2022-01-23 08:39 | disposition home or self-care (01) ==
LOC: HO.HOSX 08:38
PROVIDERS: Visit Provider Orthopaedic Surgery
DX: Z47.1 Aftercare following joint replacement surgery (principal); Z96.651 Presence of right artificial knee joint
CPT/HCPCS: 73560; 73565; 99212

== ENCOUNTER 2022-01-28 12:47 | Day surgery (SDC) | payer OTHER, SELFPAY ==
--- NOTE | 2022-01-28 07:33 | MHC.SHP ---
Pre-Procedural Eval Section A Date of Service: 01/28/22 The patient is an INPATIENT: No Changes since office visit: Yes Patient answered all questions; No Cold of Flu in the past 2 weeks, No New Medical Problems and No Changes in Medication The History & Physical has been completed within 30 days and I have reviewed it.: Yes Section B Chief Complaint: presence of knee joint Allergies: Allergies Allergy/AdvReac Type Severity Reaction Status Date / Time Penicillins [PCN] Allergy Unknown RASH, Verified 01/23/22 10:22 ITCHINESS oxycodone [From Percocet] Allergy vomiting Verified 01/23/22 10:22 Plan I have reviewed the history and physical and performed a pertinent physical examination on my patient. No changes have occurred unless specified.
[2022-01-28 13:19] VITALS: BMI 32.8
[2022-01-28 13:26] VITALS: BP 137/84; PULSE 76; RESP 16; TEMP 36.7; O2SAT 99
--- NOTE | 2022-01-28 15:16 | P.BOP_ITS ---
Brief Operative Note Date of Service: 01/28/22 Pre-op diagnosis: right knee stiffness s/p TKA Post-op diagnosis: same Procedure: Manipulation under anesthesia right knee Surgeon: Tony Marroquin MD Anesthesia: MAC and regional Was an Education Program Manager used for this Procedure?: Yes Education Program Manager: Ayanna Simpson Estimated blood loss (mL): 0 IV fluids (mL): 25 Pathology: none sent Condition: stable Disposition: PACU
[2022-01-28 15:21] VITALS: BP 112/62; PULSE 85; RESP 15; TEMP 36.8; O2SAT 96
[2022-01-28 15:36] VITALS: BP 118/76; PULSE 84; RESP 16; TEMP 36.6; O2SAT 97
--- NOTE | 2022-01-28 16:02 | HO.ANESPROP2 ---
HPI - Anesthesia Eval Consult details Narrative: 56-year-old female here for knee manipulation under anesthesia PMFSH Active Problems Active Problems: All Active Problems (Updated 01/28/22 @ 13:43 by Jacqueline Orona RN) S/P total knee arthroplasty (Acute) Past Medical History Medical History Anxiety and depression Arthritis Bipolar 1 disorder COVID-19 vaccine series completed Fibromyalgia High cholesterol Hypothyroidism Mental health disorder Neuropathy Primary localized osteoarthritis of right knee Family History Family history of problems with anesthesia: No Surgical History Surgical History History of arthroscopy of right knee History of bariatric surgery History of bunionectomy of both great toes History of right oophorectomy History of shoulder surgery Hx of hysterectomy History of Problems with Anesthesia: No Social History Social History Household Members: Spouse Housing: House Are you a primary aged or disabled care worker to a significant other at home: No Do you presently have visiting nurse or other home services: No Patient Tobacco Use Status: Never used Tobacco service: No Current occupational status: unemployed and disabled Current occupation: right handed Meds Allergies Allergy/AdvReac Type Severity Reaction Status Date / Time Penicillins [PCN] Allergy Unknown RASH, Verified 01/28/22 13:40 ITCHINESS oxycodone [From Percocet] Allergy vomiting Verified 01/28/22 13:40 Home Medications Medication Instructions Recorded Confirmed Last Taken Type gabapentin 100 mg capsule 100 mg PO DAILY 03/15/21 09/05/21 Unknown History amitriptyline 25 mg tablet 50 mg PO BEDTIME 09/04/21 09/04/21 Unknown History aripiprazole 10 mg tablet 1 tab PO DAILY 09/04/21 09/04/21 Unknown History lamotrigine 150 mg tablet 1 tab PO BEDTIME 09/04/21 09/04/21 Unknown History levothyroxine 50 mcg tablet 1 tab PO DAILY 09/04/21 09/04/21 Unknown History pravastatin 40 mg tablet 1 tab PO DAILY 09/04/21 09/04/21 Unknown History trazodone 50 mg tablet 1 tab PO BEDTIME PRN 09/04/21 09/04/21 Unknown History ursodiol 300 mg capsule 1 cap PO BID 09/04/21 09/04/21 Unknown History Exam Exam Date and Time: January 28, 2022 1602 Height,Weight and Vital Signs: Height 5 ft 6 in Weight 203 lb Last Vital Signs Temp 97.9 F 01/28/22 15:36 Pulse 84 01/28/22 15:36 Resp 16 01/28/22 15:36 BP 118/76 01/28/22 15:36 Pulse Ox 97 01/28/22 15:36 Airway Mallampati Class: II TM Dist: >3cm Neck ROM: Full Loose/Missing/Broken Teeth: Yes Assessment and Plan Assessment Anesthesia Assessment: Anesthesia Plan Discussed and Chart Reviewed Final Anesthetic Review Family History of Problems with Anesthesia: No History of Problems with Anesthesia: No NPO: Yes ASA Class: II Final Preanesthetic Review: No Changes in Pt Med Stat, Meds/Allgs Chart Reviewed, Consent Obtained/Reviewed and Anes Risks/Benef Reviewed Patient Risk: Low Procedure Risk: Low Anesthetic Plan Anesthetic Plan: MAC: and Regional Block Disposition: Standard PACU
--- NOTE | 2022-01-29 09:31 | W.PM.OPN ---
Operative Note Operative Note Date of Service: 01/28/22 Narrative: Pre-op diagnosis: right knee stiffness s/p TKA Post-op diagnosis: same Procedure: Manipulation under anesthesia right knee Surgeon: Tony Marroquin MD Anesthesia: MAC and regional Was an Lead Clinical Research Coordinator used for this Procedure?: Yes Lead Clinical Research Coordinator: Ayanna Simpson Estimated blood loss (mL): 0 IV fluids (mL): 25 Pathology: none sent Condition: stable Disposition: PACU Procedure in detail: Patient was brought to the operating room and placed supine on the surgical table. A time out was called to identify proper site, proper procedure and proper surgeon. While anesthitized she had 10- 90 deg of motion.I applied steady and strong gradual force to extend and flex her leg. Extension did not change in any measurable way and flexion I was able to increase her passive flexion to 110 deg at rest. There was audible adhesioloysis. I used a goniometer to measure and then patient was awakened from anesthesia and brought to the recovery room in stable condition. There were no complications.
== END 2022-01-28 15:59 | disposition home or self-care (01) ==
PROVIDERS: PCP Internal Medicine; Visit Provider Orthopaedic Surgery
PROC: (CPT 27570; principal; 2022-01-28 16:10)
DX: M25.561 Pain in right knee (principal); M25.661 Stiffness of right knee, not elsewhere classified; M17.11 Unilateral primary osteoarthritis, right knee; Z96.651 Presence of right artificial knee joint; G62.9 Polyneuropathy, unspecified; F31.9 Bipolar disorder, unspecified; M79.7 Fibromyalgia; E03.9 Hypothyroidism, unspecified; Z98.84 Bariatric surgery status; Z98.890 Other specified postprocedural states
CPT/HCPCS: 27570; J1100; J2250; J3010

== ENCOUNTER → 2022-02-06 13:47 | Outpatient (BNVA) | payer OTHER, SELFPAY | PROVIDERS: PCP Internal Medicine; Visit Provider Physician Assistant | DX: Z47.1 Aftercare following joint replacement surgery (principal); M25.60 Stiffness of unspecified joint, not elsewhere classified; Z96.659 Presence of unspecified artificial knee joint | CPT/HCPCS: 99212 ==

== ENCOUNTER 2022-02-20 13:00 | Outpatient (RCR) | payer OTHER, SELFPAY ==
--- NOTE | 2021-10-29 15:15 | MHC.PT.OD ---
[facility] [place] Office [place] Office [place] Office [address] Jet Squires [address] [phone] F: [phone] F: [phone] F: [phone] F: [phone] Physical Therapy Daily Note Diagnosis: s/p R TKA DOS 09/17/21 Dr. Marroquin Date of Surgery: 09/17/21 Date of Evaluation: 10/22/21 Date of Treatment: 10/29/21 Treatments to Date: Cancellations to Date: No Shows to Date: Authorized Visits: 3 Insurance End Date: Precautions/ Contraindications:WBAT R TKA DOS 09/17/21 Subjective: More sore yesterday, been doing my exercises 3x/ day. Pain Score and Location: 2 Objective Flowsheet: Tests & Measures AAROM ext 0 to AAROM flex 110 Fair lift with SLR (+) lag noted improved with AA, encouraged working on quad set and SAQ at home. Pt ambulating with std cane, reports compliance with HEP program at home. Exercises SCIFIIT bike seat #10 x 10 minutes fwd revolutions, then moved to #8 minutes x 5 minutes Reviewed current HEP program at home, issued and updated HEP sheets isometric QS x 5 sec hold x 30R, SLR x AA x 10R, 10R solo AAROM heel slides in sitting and supine x 20 sec hold, seated gastroc towel stretch and seated HS stretch x 20 sec hold x 4R Passive heel prop knee extension stretch x 10 minutes with ice post Incision healed no steri strips present Education re: self care for/CFM/STM over incision, education re: STM while in knee flexion stretch Step up 4 inch leading with R LE x 2 sets 10R, step up 6 inch x 2 sets 10R Standing prostretch x 4 minutes on/off x 30 sec hold Manual STM to distal quadriceps, education re: CFM /scar mobility/massage while in end range knee flexion stretch with strap. Patellar mobs supra/infra/laterally with towel roll under knee Self care- HEP sheets given and reviewed, passive heel stretch, icing knee, encouragement for walking program , education re benefit of bike-restorator to be researched for home use Modalities Assessment: Senior Credit Officer Dwain Child #[id number] AAROM 0-110 degrees. Pt is a RHD 56 y/o female, referred to PT s/p R TKA DOS 09/17/[address] Marroquin. Use of interpreter and translator Nicky #[id number] as pt is Swazi speaking. She utilized [employer] transportation to and from her appointment today. Pt exhibits decreased ROM AROM -20 to 99, AAROM -5 to 99 R knee; impaired strength of quad poor SLR with lag, decreased functional mobility presents using rollator, at home she states is using std cane for the past two weeks Pt would benefit from attending skilled PT services at a frequency of 3x/week x 2 weeks then downgrading 2x/week x 4 weeks to address impairments, implement HEP, and restore functional mobility to maximize gains. Post evaluation she was issued written HEP sheets in Swazi and provided information about stationary bike (provided with information about how/where to obtain a restorator bike). Pt incision is fully closed, no steri-strips present, minimal edema. She was educated in the importance of gaining full extension in her knee karri. He was shown how to perform passive heel prop knee extension stretch with a towel roll/paper towel roll with combo of weighted 2# cuff weight and ice wrapped around her knee x 10 minutes post eval with good tolerance. HEP sheets include: isometric QS,SAQ, SLR encouraged to work up to 30 reps of each, seated and supine heel slide with strap x 20 sec hold x, passive knee extension stretch, gastroc towel stretch, and HS stretch with towel. Pt demonstrated excellent tolerance for session and appears highly motivated. PT Plan: 3x/week x 2 weeks likley then tapering Short Term Goals: 1. AAROM R knee extension -5. 2. AAROM R knee flexion 100 degrees. 3. Strength R knee ext 4/5 as evidenced by SLR. 4. Ambulate 500ft with RW with good dynamic balance community ambulation. 5. Initiate HEP. Tube Room Cashier Goals: 1. AROM R knee extension 0 degrees. 2. AROM R knee flexion 120 degrees. 3. Strength R knee ext/flex 5/5. 4. Ambulate with std cane> no AD community distance with good dynamic balance. 5. I HEP. Electronically signed by: Keiry Sauer, PT, DPT
--- NOTE | 2021-12-06 14:00 | MHC.PT.OD ---
[facility] [place] Office [place] Office [place] Office [address] Jet Squires [address] [phone] F: [phone] F: [phone] F: [phone] F: [phone] Physical Therapy Daily Note Diagnosis: s/p R TKA DOS 09/17/21 Dr. Marroquin Date of Surgery: 09/17/21 Date of Evaluation: 10/22/21 Date of Treatment: 12/06/21 Treatments to Date: Cancellations to Date: No Shows to Date: Authorized Visits: 14 Insurance End Date: Precautions/ Contraindications:WBAT R TKA DOS 09/17/21 Subjective: Reports pain/stiffness, has reported using 3lb bag rice over knee passive stretch 2x daily. Reports use of tylenol, Has not been using std cane. Pain Score and Location: 5 R KNEE Objective Flowsheet: Tests & Measures AROM PRE session -21 to 90 Passive heel prop -9 AAROM/PROM end range 105 degrees with strap from pt pulling hooklying and therapist overpressure Exercises Seat #8 x 2 minuted fwd revolution, seat #7 x 10 minutes for AAROM ROM seat advanced to #6 x 1 minutes then #5 for 10 more minutes totaling Passive knee extension stretch with heel prop with 5# weight over anterior knee MHP to posterior distal thigh, Review of TKE standing at home, importance of AAROM with strap Pt expresses recently has been avoiding pain- educated needs to push into strong stretching intensity AAROM knee flexion in supine x 2 sets 5R with therapist overpressure pt pulling on strap to 105 degrees. Reiterated need to regain motion extension>flex karri and needs to work on passive stretches at home several times daily. Pt expresses recently has been stopping herself when bending at end ranges- educated patient needs to push into pain/strong stretch and hold for sustained period goal 10-20 sec with low reps high frequency throughout the day. Patellar mobs in supine with towel roll under knee sup>infra>laterally Tibiofemoral glides oscillatory posterior/anterior x 5R painfree each Prone for IASTM to medial distal HS and gastroc>soleus complex post heel prop knee extension stretch Phone call placed to Ortho office to express concern about ROM reduction in recent weeks w/ plan to increase frequency back to 3x/week. Modalities Assessment: Pt has attended 14 sessions of PT to date, demonstrated declining movement following holiday (reports had to take care of grandchildren over extended period ? compliance with end range stretching.) Pt also missed last weeks visits due to weather was not seen in PT for >9 days. Pt educated that focus right now is need to regain movement extension>flexion karri and needs to aggressively work on this. AAROM with strap has been slowly advancing, therapist is questioning benefit of Dynasplint for PROM at home to maximize gains. Pt was trialed at increasing frequency to 3x/week when stiffness was trending however pt had inconsistency in attendance missing the add on days in office. Passively able to achieve -9 degrees ext post heel prop with MHP today applied to quad/HS> PROM flexion to 105. Pt also reports her restorator bike will be arriving today in the mail. Please advise Dr. Marroquin- ?Continue with PT with trial of Dynasplint for added tension PROM at home. If in agreement for Dynasplint please write order and I can work to obtain setup for contact with rep if desired.Thank you for this referral. PT Plan: ROM extension >flexion Follow up with Dr. Marroquin ? Dynasplint Pt advised to go back to cane to reduce gait deviation and aide in goal of active extension with ambulation. Short Term Goals: 1. AAROM R knee extension -5. 2. AAROM R knee flexion 100 degrees. 3. Strength R knee ext 4/5 as evidenced by SLR. 4. Ambulate 500ft with RW with good dynamic balance community ambulation. 5. Initiate HEP. [facility] Goals: 1. AROM R knee extension 0 degrees. 2. AROM R knee flexion 120 degrees. 3. Strength R knee ext/flex 5/5. 4. Ambulate with std cane> no AD community distance with good dynamic balance. 5. I HEP. Electronically signed by: Keiry Sauer, PT, DPT
--- NOTE | 2021-12-31 15:27 | MHC.PT.OD ---
[facility] [place] Office [place] Office [place] Office [address] Jet Squires [address] [phone] F: [phone] F: [phone] F: [phone] F: [phone] Physical Therapy Daily Note Diagnosis: s/p R TKA DOS 09/17/21 Dr. Marroquin Date of Surgery: 09/17/21 Date of Evaluation: 10/22/21 Date of Treatment: 12/31/21 Treatments to Date: Cancellations to Date: No Shows to Date: Authorized Visits: 18 Insurance End Date: Precautions/ Contraindications:WBAT R TKA DOS 09/17/21 Subjective: It feels more inflamed today, I think its the weather. Pt reports has been wearing extension splint 2 hours in morning and 2 hours in evening and use of flexion splint overnight last night was 9 hours daily since fitting was completed last Thursday12/24/21. She reports use of 1000mg Tylenol in AM/PM Flexion splint was increased #6, extension splint today was at #3 tension, increased to #6 per recommendation of Dynasplint rep based on tolerance/progression. Pain Score and Location: 5 R KNEE Objective Flowsheet: Tests & Measures AROM PRE session -15 to 90 AROM -10, PROM -8 to 104 post bike Exercises STARTED WITH SCIFIT RECUMBENT BIKE SEAT seat #7 posterior revolutions with education to be aware of plantar flexion compensation with ankle- attempt to push seat closed to increase AAROM knee flexion to seat #6, x 5 minutes later. ROcktape applied while in knee flexion stretch in effort to ease quad stretch educated re: application/removal Pt expressing has been able to tolerate wearing her extension splint for 2 hours/day and overnight for her flexion splint. She was requesting to increase tension on extension (has been wearing it at #3 for one week with good tolerance) so this was increased to #6. Reviewed the importance of performing HEP program in addition to splint use, encouraged AAROM heel slides post splint prn via chair slides/when supine. TKE in standing with blue band for end range active quad set with hold x 5 x 3 sets 10R with 5 sec hold, active awareness of quad set with standing extension with hold pressure. Reiterated need to regain motion extension>flex karri and needs to work on passive stretches at home several times daily. Pt expresses recently has been stopping herself when bending at end ranges- educated patient needs to push into pain/strong stretch and hold for sustained period goal 10-20 sec with low reps high frequency throughout the day. Posterior tibiofemoral glides grade 2-3 oscillatory in supine with towel roll under knee with no pain reported following in effort to increase R knee ROM Phone call placed to Ortho office to express concern about ROM reduction in recent weeks w/ plan to increase frequency back to 3x/week. Modalities Passive knee extension stretch with heel prop towel roll ice x 10 minutes with 5# weight over knee- down to -8 end of session. Assessment: 12/31/21: Pt AROM start of session -15 to 90, PROM -8 to 104. Pt has been compliant with Dynasplints use for extension 2 hours in evening/2 hours in AM daily and use of flexion splint overnight hours for the past week. She has been taking 1000mg tylenol in AM/PM with report pain/inflammation .. patient and therapist are questioning if she may benefit from trial of an anti-inflammatory vs tylenol to ease sx to improve tolerance for AAROM/PROM during therapy end range movements. Pt is coming to PT twice weekly. 12/27/21:Positive response to dynasplints thus far- increased tension on flexion splint to #6 with good tolerance. AAROM -10 to 100 today. Pt demonstrates carryover to home program. 12/24/21Pt was fitted for Dynasplints today for both flexion and extension splints. Pt demonstrated good tolerance for fitting #3 tension on both flexion and extension. Advised per rep to start wear extension splint during the day goal of 2 hours, when resting (non-ambulatory), and flexion when sleeping in side-lying position starting a few hours gradually to tolerance overnight as able. Pt AROM today -15 to 90 at start of session. Post session -13 to 94 degrees AAROM. PT Plan: TO continue PT twice weekly with use of daily dynasplint- splint to be adjusted weekly one level of tension per Dynasplint rep. Follow up with Dr. Marroquin office in 6 weeks. Short Term Goals: 1. AAROM R knee extension -5. 2. AAROM R knee flexion 100 degrees. 3. Strength R knee ext 4/5 as evidenced by SLR. 4. Ambulate 500ft with RW with good dynamic balance community ambulation. 5. Initiate HEP. Assisted Goals: 1. AROM R knee extension 0 degrees. 2. AROM R knee flexion 120 degrees. 3. Strength R knee ext/flex 5/5. 4. Ambulate with std cane> no AD community distance with good dynamic balance. 5. I HEP. Electronically signed by: Keiry Sauer, PT, DPT
--- NOTE | 2022-01-14 15:19 | MHC.PT.OD ---
[facility] [place] Office [place] Office [place] Office [address] Jet Squires [address] [phone] F: [phone] F: [phone] F: [phone] F: [phone] Physical Therapy Daily Note Diagnosis: s/p R TKA DOS 09/17/21 Dr. Marroquin Date of Surgery: 09/17/21 Date of Evaluation: 10/22/21 Date of Treatment: 01/14/22 Treatments to Date: Cancellations to Date: No Shows to Date: Authorized Visits: 23 Insurance End Date: Precautions/ Contraindications:WBAT R TKA DOS 09/17/21 Subjective: Reports both splints are now set at #9 ( flexion due to increase to #12 tonight with extension one due to change on Thursday the ). Pt taking gabapentin at night, reports use of extra strength tylenol (500mg x 2 in AM and again in PM). Pt scheduled to see Dr. Marroquin office on 01/23/22. Pain Score and Location: 5 R KNEE Objective Flowsheet: Tests & Measures AROM at start of session -20 t0 85 at start of session PROM passive stretch -15 to post heel prop with MHP and weight to ankle AAROM heel slides to 96 today Reviewed HEP with encouragement to keep pushing ROM and strengthening ext>flex as able. Pt reissued entire HEP program to review. Exercises Unable to start with bike set at same seat settings as last week secondary to poor tolerance for rocking>revolutions... started at #8 able for gentle rocking>fwd revolutions progressed to seat #7 fwd revolutions for five additional minutes, then #6 for fwd revolutions. Standing pro-stretch x 4 minutes R LE, AAROM heel slides x 10 sec hold x 10R, SAQ, seated LAQ x 2 sets 10R, TKE x 2 sets 10R, standing gastroc and soleus stretch x 4R x 20 sec hold. Standing TKE With black band (issued for home) standing hip ext completed bilaterally x 2 sets 10R; AAROM heel slides to 106 degrees. Isometric quad sets at 0 with focus on contraction of quad, SAQ, LAQ, SLR all reviewed x 10R each, Seated HS Phone call made to Leon Noel [phone] to inquire about making follow up as pt reports feeling tension on splint at site of calf not at HS when wearing extension splint- awaiting callback. Addendum- spoke to Leon he will be reaching out to patient to confirm questions of fit with her. Prone for MHP applied initially to distal HS x five minutes with 5# cuff weight around ankle while lying prone; MHP later moved to proximal calf x 5 minutes. Pt received STM to distal HS/ proximal calf following, passive knee ext stretch followed by STM to proximal calf musculature in effort to improve ROM. Attempt for posterior tibiofemoral glides within painfree tolerance in effort to increase R knee ROM. Phone call placed to Ortho office to express concern about ROM reduction in recent weeks w/ plan to increase frequency back to 3x/week. Modalities Pt deferred ice today Assessment: 01/14/22 AROM start of session -20 to 85 degrees, PROM -15 to 96 degrees today.. Pt reports compliance with knee extension splint 2 hours in AM and 2 hours in PM, overnight daily >6 for flexion splint. Pt has plateaued her progress in PT. Pt encouraged to continue use of splint daily as directed until follow up appointment. Pt reissued comprehensive HEP program educated that we are awaiting further authorization and there is a chance insurance may not extend her benefit due to status. 01/10/22 AROM -10 to 90 PROM -10 to AAROM 106. Pt reports good compliance with splints- have increased both to level #9 tension. Therapist informed that patient will be receiving a phone call from Alessandro de leon re: brace questions of fit. 01/07/22 Pt stated did not call Anna-splint as previously instructed, therapist assisted in making call- awaiting callback Taylor de leon later called back after appt he stated he will be reaching out to patient for appt. Concern/questions regarding fit of extension splint brace- reports compliance with 2 hours evening/am use daily and wearing flexion splint overnight 9:30pm-7:30am with compliance similar for use daily. Pt able to make full revolution on bike today#7 progressed to seat #5 at same seat number with improved tolerance AAROM flexion 100 degrees. 01/03/22 Pt arrived at office without splint today but stated had questions about where pressure was felt (behind calf vs behind distal HS). Pt encouraged to reach out to splint rep over the weekend and bring in to the office to troubleshoot fit next session. At last appt pt was wearing splint correctly. Pt will require additional visits of PT to progress ROM, strength, mobility in addition to use of Dynasplint at a frequency of 2x/week x [address] Marroquin office in approx 6 weeks time. 12/31/21: Pt AROM start of session -15 to 90, PROM -8 to 100 today. Pt has been compliant with Dynasplints use for extension 2 hours in evening/2 hours in AM daily and use of flexion splint overnight hours for the past week. She has been taking 1000mg tylenol in AM/PM with report pain/inflammation .. patient and therapist are questioning if she may benefit from trial of an anti-inflammatory vs tylenol to ease sx to improve tolerance for AAROM/PROM during therapy end range movements. Pt is coming to PT twice weekly. 12/27/21:Positive response to dynasplints thus far- increased tension on flexion splint to #6 with good tolerance. AAROM -10 to 100 today. Pt demonstrates carryover to home program. 12/24/21Pt was fitted for Dynasplints today for both flexion and extension splints. Pt demonstrated good tolerance for fitting #3 tension on both flexion and extension. Advised per rep to start wear extension splint during the day goal of 2 hours, when resting (non-ambulatory), and flexion when sleeping in side-lying position starting a few hours gradually to tolerance overnight as able. Pt AROM today -15 to 90 at start of session. Post session -13 to 94 degrees AAROM. PT Plan: TO continue PT exercises daily w/ use of daily dynasplints- splint to be adjusted weekly one level of tension to #12 for both flexion and ext (pt educated how to adjust on her own- did not bring splints into the office w/ her this date. Follow up with Dr. Marroquin office week of 01/23/22. Short Term Goals: 1. AAROM R knee extension -5. 2. AAROM R knee flexion 100 degrees. 3. Strength R knee ext 4/5 as evidenced by SLR. 4. Ambulate 500ft with RW with good dynamic balance community ambulation. 5. Initiate HEP. Parts Data Writer Goals: 1. AROM R knee extension 0 degrees. 2. AROM R knee flexion 120 degrees. 3. Strength R knee ext/flex 5/5. 4. Ambulate with std cane> no AD community distance with good dynamic balance. 5. I HEP. Electronically signed by: Keiry Suaer, PT, DPT
== END 2022-06-06 14:29 | disposition home or self-care (01) ==
LOC: HO.PTWFD 13:00
PROVIDERS: Visit Provider Orthopaedic Surgery
DX: Z96.651 Presence of right artificial knee joint (principal)
CPT/HCPCS: 97110; 97140; 97162; 97164; 97530; 97535

== ENCOUNTER → 2022-02-21 11:28 | Outpatient (BNVA) | payer OTHER, SELFPAY | PROVIDERS: PCP Internal Medicine; Visit Provider Internal Medicine | DX: T84.84XA Pain due to internal orthopedic prosthetic devices, implants and grafts, initial encounter (principal); Z96.651 Presence of right artificial knee joint | CPT/HCPCS: 99202 ==

== ENCOUNTER → 2022-03-07 14:52 | Outpatient (BNVA) | payer OTHER, SELFPAY | PROVIDERS: PCP Internal Medicine; Visit Provider Physician Assistant | DX: Z47.1 Aftercare following joint replacement surgery (principal); Z96.659 Presence of unspecified artificial knee joint | CPT/HCPCS: 99212 ==

== ENCOUNTER 2022-10-10 09:29 | Outpatient (REF) | payer OTHER, SELFPAY ==
--- NOTE | ~2022-10-10 | XR_ITS ---
EXAMINATION: XR PELVIS CLINICAL INFORMATION: Pain COMPARISON: None TECHNIQUE: AP view of the pelvis. FINDINGS: Bone alignment is normal. No fracture or dislocation. Normal-appearing hip joints. Normal soft tissues. XR/XR pelvis 1-2V IMPRESSION: Normal pelvis.
== END 2022-10-10 09:30 | disposition home or self-care (01) ==
LOC: HO.HOSX 09:29
PROVIDERS: Visit Provider Orthopaedic Surgery
DX: M70.62 Trochanteric bursitis, left hip (principal)
CPT/HCPCS: 72170; 99212

== ENCOUNTER 2022-12-11 13:00 | Outpatient (RCR) | payer OTHER, SELFPAY ==
[2022-10-23 12:45] VITALS: BP 128/70; PULSE 77; O2SAT 98
--- NOTE | 2022-10-27 13:44 | MHC.PT.OD ---
[facility] [place] Office [place] Office [place] Office [address] Jet Squires [address] [phone] F: [phone] F: [phone] F: [phone] F: [phone] Physical Therapy Daily Note Diagnosis: Trochanteric bursitis, left hip, M70.[address] Marroquin 10/10/22 Date of Surgery: Date of Evaluation: 10/23/22 Date of Treatment: 10/27/22 Treatments to Date: Cancellations to Date: No Shows to Date: Authorized Visits: 2 Insurance End Date: Precautions/ Contraindications:History of Right TKA 09/17/21 with history of MICHAEL 01/28/22 resulting in PROM -10 to 110 while under anesthesia at that time. Subjective: Pt expressing on Thursday woke up in AM with new onset of rash R lumbar with (+) itching and burning Pt expressing no worsening sx since onset. Pt expressed she finished steroid taper for her back pain- prior to onset of rash no report of rash Concern for shingles vs bug bite. Pain Score and Location: Objective Flowsheet: Tests & Measures see eval Exercises Seated SCIFIT bike level 2.5 x 10 minutes SKTC, piriformis stretch, and LBTR x 4 reps x 30 sec hold with feet up on physio-ball. Hook-lying posterior pelvic tilt x 2 sets 10R with 5 sec hold, SL hip abduction with pillow between the knees x 2 sets 10R with abdominal core control completed bilaterally. Hook-lying TAC march x 2 sets 10R with core control/stabilization. Hooklying bridge with posterior pelvic tilt through modified range Educated re: avoidance of heat over rash/lumbar region. Encouraged use of ice to L hip to ease sx at home. Manual STM via flexbar to L proximal hip region in effort to increase soft tissue flexibility. Pt encouraged to perform at home for self care Modalities Assessment: 10/27/22: Pt expressing new onset of R sided lumbar rash which was noticed Thursday appears consistent with what could follow dermatomal pattern ~L3. Report of burning sx with six reddened itchy circular patches which she states initially had crusty raised appearance. Pt denies presence of headache but states low energy than baseline. Concern for mild care of shingles vs bug bites. Therapist encouraged to to consult with PCP and/or walk in office following visit to obtain MD/COBOL ENGINEER opinion. Pt expressing some resolution of left lateral hip pain since onset with implement of stretches. Recently finished steroid taper x 9 days following a lumbar strain. (She denied presence of burning or radiating sx prior to presence of new rash). Pt is a RHD, Welsh speaking female, referred to PT s/p history of R TKA 09/17/21 resulting in less than optimum ROM outcomes resulting in MICHAEL on 01/28/22 measuring in -10<90, during MICHAEL Dr. Moore was able to achieve PROM flexion to 110 degrees. Pt recently referred to PT on 10/10/22 for treatment of L trochanteric hip bursitis which pt states began approximately three months ago insidiously. Pt exhibits decreased R knee ext in standing resulting in hyperextension of the L knee. During assessment today she exhibits increased L hip ER on the left, increased stance phase on the left during gait, and hyperextension of her L knee. Positive lumbar instability testing, impaired strength hip abd,ext/and glutes. Increased weight gain since last therapy. Pt expressed after she had consult with Dr. Marroquin she sustained a lumbar strain while mopping resulting in medical treatment in the ER setting at [facility]. Pt was sent home from the ER with a steroid taper for 9 days. She is currently four days into the treatment for that and expresses some improvement in her low back pain. She denies radiation of sx beyond her belt-line but did express initially was noticing radiating pain into her R LE. Pt exhibits excellent rehab outcomes and has been a previous patient in therapy with good compliance. Pt was initiated in AAROM piriformis and SKTC stretches, LBTR, and posterior pelvic tilt in hook-lying post evaluation. She was educated/encouraged to use ice prn for pain sx. Pt will be seen in PT 2x/week x 4 weeks. Use of a seismic prospecting observer helper Eliazar #[id number] via [email or web address] was utilized for this evaluation. PT Plan: 2x/week x 4 weeks L trochanteric hip bursitis manual therapy proximal L hip, stretching, strengthening program Short Term Goals: 1. Pt will demonstrate 25% improvement in ER flexibility. (IR: tightness ER compared to R LE). 2. Pt will demonstrate a negative lumbar instabiity testing. (IR: positive instability testing). 3. Pt will reimplement integration into the gym setting with good understanding joint protection measures. Halfway Goals: 1. I HEP. 2. Pt will demonstrate symmetrical bridge without presence of L hip pain/ R lumbar sx. 3. Pt will demonstrate strength R hip ext 5/5. 4. Pt will demonstrate strength B hip abd 5/5. 5. Pt will restore ability to sleep without disturbance multiple times in the evening secondary to her L hip pain. Electronically signed by: Keiry Sauer, PT, DPT
== END 2022-12-18 10:01 | disposition home or self-care (01) ==
LOC: HO.PTWFD 13:00
PROVIDERS: Visit Provider Orthopaedic Surgery
DX: M70.62 Trochanteric bursitis, left hip (principal)
CPT/HCPCS: 97110; 97140; 97162; 97535

== ENCOUNTER → 2023-04-10 12:58 | Outpatient (BNVA) | payer OTHER, SELFPAY | PROVIDERS: PCP Internal Medicine; Visit Provider Nurse Practitioner Family | DX: R51.9 Headache, unspecified (principal); R42 Dizziness and giddiness | CPT/HCPCS: 99202 ==

== ENCOUNTER 2023-07-13 09:42 | Outpatient (REF) | payer OTHER, SELFPAY ==
--- NOTE | ~2023-07-13 | MR_ITS ---
EXAMINATION: MR BRAIN WITH AND WITHOUT CONTRAST CLINICAL INFORMATION: Headache, concern for low-pressure headache COMPARISON: None. TECHNIQUE: MRI of the brain was obtained using routine sequences before and following administration of intravenous contrast. A total of 10 mL of Gadavist was administered intravenously. FINDINGS: 0.9 cm thinly septated nonenhancing cystic lesion within the anterior right temporal periventricular white matter with adjacent gliosis most suggestive of a prominent perivascular space. No associated enhancing component. No significant mass effect or herniation pattern. No acute infarct. The GRE sequence is without susceptibility artifact to suggest acute or chronic blood products. No extra-axial fluid collection. The ventricles and sulci are normal in size and configuration without significant volume loss or hydrocephalus. The intracranial dural venous sinus and arterial flow voids are preserved. Prominent left retrocerebellar CSF space, presumed arachnoid cyst with mild associated mass effect along the subjacent left cerebellum. The orbits are grossly unremarkable. Trace scattered paranasal sinus mucosal thickening. No mastoid effusion. Small proteinaceous cyst along the floor of the right maxillary sinus. Normal marrow signal. MR/MR head/brain wo/w con IMPRESSION: 0.9 cm thinly septated nonenhancing cystic lesion within the anterior right temporal periventricular white matter with adjacent gliosis most suggestive of a prominent perivascular space. No associated enhancing component. No acute intracranial process. No findings suggestive of spontaneous intracranial hypotension.
[2023-07-13] MEDS: gadobutroL 10 ML VIAL IVPUSH (10:42)
== END 2023-07-13 09:43 | disposition home or self-care (01) ==
LOC: HO.MRI 09:42
PROVIDERS: PCP Internal Medicine; Visit Provider Nurse Practitioner Family
DX: R51.9 Headache, unspecified (principal); R42 Dizziness and giddiness; E78.00 Pure hypercholesterolemia, unspecified
CPT/HCPCS: 70553; A9585

== ENCOUNTER 2023-08-12 12:55 | Outpatient (AMB) | payer OTHER, SELFPAY ==
[2023-08-12 13:08] VITALS: BP 116/72; BMI 34.5
--- NOTE | 2023-08-12 13:08 | A.OFFVIS_ITS ---
Intake Vital Signs 08/12/23 13:08 Height 5 ft 6 in Weight 214 lb BMI 34.5 BP 116/72 Blood Pressure Location Rt brachial Position Sitting Intake Visit Reasons: 6m follow up Headaches and Dizziness-Confirmed Intake Note: Patient presents for follow up.Patient states Im doing much william pain is controledr Allergies Penicillins [PCN] Allergy (Unknown, Verified 04/10/23 13:20) RASH, ITCHINESS pentoxifylline [From Trental] Allergy (Unknown, Verified 04/10/23 13:20) Unknown oxycodone [From Percocet] Allergy (Verified 04/10/23 13:20) vomiting HPI HPI Comments History of Present Illness Details 58-yr-old female presents for f/u visit. Pt denies any significant interval medical changes. Pt states that she is feeling better. She has not had any dizziness or very bothersome headaches. Has only needed to take prn Tylenol twice since her last visit. 07/13/23, MR/MR head/brain wo/w con: FINDINGS: 0.9 cm thinly septated nonenhancing cyst ic lesion within the anterior right temporal periventricular white matter with adjacent gliosis most suggestive of a prominent perivascular space. No associated enhancing component. No significant mass effect or herniation pattern. No acute infarct. The GRE sequence is without susceptibility artifact to suggest acute or chronic blood products. No extra-axial fluid collection. The ventricles and sulci are normal in size and configuration without significant volume loss or hydrocephalus. The intracranial dural venous sinus and arterial flow voids are preserved. Prominent left retrocerebellar CSF space, presumed arachnoid cyst with mild associated mass effect along the subjacent left cerebellum. The orbits are grossly unremarkable. Trace scattered paranasal sinus mucosal thickening. No mastoid effusion. Small proteinaceous cyst along the floor of the right maxillary sinus. Normal marrow signal. IMPRESSION: 0.9 cm thinly septated nonenhancing cyst ic lesion within the anterior right temporal periventricular white matter with adjacent gliosis most suggestive of a prominent perivascular space. No associated enhancing component. No acute intracranial process. No findings suggestive of spontaneous intracranial hypotension. [facility] Medical History (Updated 04/25/23 @ 12:36 by MAYRA Haro) Neuropathy Mental health disorder Hypothyroidism COVID-19 vaccine series completed Fibromyalgia Arthritis Bipolar 1 disorder Anxiety and depression Primary localized osteoarthritis of right knee High cholesterol Surgical History History of bariatric surgery History of right oophorectomy History of bunionectomy of both great toes History of arthroscopy of right knee Hx of hysterectomy History of shoulder surgery Family History Mother CAD (coronary artery disease) Diabetes Hypertension Alcohol abuse Father CAD (coronary artery disease) Diabetes Sister History of thyroid disorder Hypertension Breast cancer Depression Fibromyalgia Brother TIA (transient ischemic attack) Skin cancer Colon cancer Sister Hypothyroidism Sister Hypothyroidism Breast cancer Diabetes Hypertension Brother Prostate cancer Diabetes Hypertension Son Hypertension Daughter Hypertension Diabetes Social History Household Members: Spouse Housing: House Are you a primary prompt care rn to a significant other at home: No Do you presently have visiting nurse or other home services: No Alcohol intake: never Patient Tobacco Use Status: Never used Tobacco service: No Current occupational status: unemployed and disabled Current occupation: right handed Review of Systems Const All systems reviewed & are unremarkable except as noted in HPI and below Physical Exam Vital Signs: Last Vital Signs BP 116/72 08/12/23 13:08 BMI result Body Mass Index 34.5 Const General: cooperative and no acute distress Orientation/consciousness: patient oriented x3 HEENT Head: Yes normocephalic Resp Effort & Inspection: normal respiratory effort and able to speak in complete sentences Neuro General: patient oriented x3, gait normal and CN's II-XI intact bilaterally Cognition (Neuro): normal cognition Motor exam (neuro): 5/5 motor strength present throughout Psych Appearance: grossly normal Mental Status: mental status grossly normal Speech and movement: Normal speech and movement present Affect: normal affect Attitude: cooperative Thought process: Normal thought process present Thought content: Normal thought content present Insight: Good insight present (Psych) Judgement: Good judgement present (Psych) Assessment & Plan Assessment & Plan (1) New onset headache: Code(s): R51.9 - Headache, unspecified (2) Dizziness: Code(s): R42 - Dizziness and giddiness Plan Reviewed brain MRI w/wo- No acute intracranial process. Probable arachnoid cyst with mild associated mass effect along the subjacent left cerebellum. 0.9 cm thinly septated nonenhancing cystic lesion within the anterior right temporal periventricular white matter with adjacent gliosis most suggestive of a prominent perivascular space. Will consider repeating in 1-2 yrs to assess stability. ? Continue Amitriptyline 40mg qhs. Continue Tylenol prn. ?f/u in 6 months or sooner prn. Coding Level of Care Code Est Pt Level 4 (70831) Diagnoses New onset headache R51.9 Dizziness R42
== END 2023-08-12 13:26 | disposition home or self-care (01) ==
PROVIDERS: Visit Provider Nurse Practitioner Family
DX: R51.9 Headache, unspecified (principal); R42 Dizziness and giddiness
CPT/HCPCS: 99214

== ENCOUNTER → 2023-08-12 12:55 | Outpatient (BNVA) | payer OTHER, SELFPAY | PROVIDERS: Visit Provider Nurse Practitioner Family | DX: R51.9 Headache, unspecified (principal); R42 Dizziness and giddiness | CPT/HCPCS: 99212 ==

== ENCOUNTER 2024-02-15 12:05 | Outpatient (REF) | payer OTHER, SELFPAY | END 2024-02-15 12:06 | disposition home or self-care (01) | LOC: HO.HOSX 12:05 | PROVIDERS: Visit Provider Orthopaedic Surgery | DX: Z13.89 Encounter for screening for other disorder (principal) ==

== ENCOUNTER 2024-02-25 08:37 | Outpatient (REF) | payer OTHER, SELFPAY | END 2024-02-25 08:38 | disposition home or self-care (01) | LOC: HO.HOSX 08:37 | PROVIDERS: Visit Provider Orthopaedic Surgery | DX: Z13.89 Encounter for screening for other disorder (principal) ==

== ENCOUNTER 2024-03-28 07:23 | Outpatient (REF) | payer OTHER, SELFPAY ==
--- NOTE | ~2024-03-28 | XR_ITS ---
EXAMINATION: Right knee series including AP upright of both knees CLINICAL INFORMATION: Pain in the knee. COMPARISON: X-rays of the knees January 2022 TECHNIQUE: Four views of the right knee. FINDINGS: Right knee: There is a total knee arthroplasty in place. The components are in the usual position and are unchanged. There is no periprosthetic fracture or surrounding abnormal lucency. There is no effusion. The surrounding soft tissues are normal. Left knee Limited AP upright: There are marginal osteophytes about the medial and lateral compartments without joint space narrowing indicative of at least mild osteoarthritis unchanged. Surrounding bone and soft tissues are unremarkable. Patellofemoral joint cannot be assessed on this AP projection. XR/XR knee RT 3V IMPRESSION: RIGHT KNEE: Right total knee arthroplasty without change or complication by x-ray. LEFT KNEE: Mild osteoarthritis unchanged.
== END 2024-03-28 07:24 | disposition home or self-care (01) ==
LOC: HO.HOSX 07:23
PROVIDERS: Visit Provider Orthopaedic Surgery
DX: M70.50 Other bursitis of knee, unspecified knee (principal); Z96.651 Presence of right artificial knee joint
CPT/HCPCS: 73562; 99212

== ENCOUNTER 2024-03-28 12:37 | Outpatient (AMB) | payer OTHER, SELFPAY ==
--- NOTE | 2024-03-28 12:41 | MHC.OFFVIS ---
Vital Signs 03/28/24 12:42 Height 5 ft 6 in Weight 214 lb BMI 34.5 Intake Visit Reasons: OV-Right TKA pain DOS: 09/17/21-follow up Intake Note: Mitzi is a 57 year old female who presents today for a follow up of her right hip bursitis. History of Right TKA 01/28/22. Declined bursa injections at her last visit Allergies Penicillins [PCN] Allergy (Unknown, Verified 04/10/23 13:20) RASH, ITCHINESS pentoxifylline [From Trental] Allergy (Unknown, Verified 04/10/23 13:20) Unknown oxycodone [From Percocet] Allergy (Verified 04/10/23 13:20) vomiting HPI HPI OV-Right TKA pain DOS: 09/17/21-follow up: Details: Mitzi is a 57 year old female who presents today for a follow up of her right hip bursitis. History of Right TKA 01/28/22. She describes pain over the medial knee. It has not all the time but comes and goes. She has been standing on her feet a lot very busy with work. She denies fevers or chills. [facility] Medical History (Updated 03/28/24 @ 13:45 by Tony Marroquin MD) Neuropathy Mental health disorder Hypothyroidism COVID-19 vaccine series completed Fibromyalgia Arthritis Bipolar 1 disorder Anxiety and depression Primary localized osteoarthritis of right knee High cholesterol Surgical History History of bariatric surgery History of right oophorectomy History of bunionectomy of both great toes History of arthroscopy of right knee Hx of hysterectomy History of shoulder surgery Family History Mother CAD (coronary artery disease) Diabetes Hypertension Alcohol abuse Father CAD (coronary artery disease) Diabetes Sister History of thyroid disorder Hypertension Breast cancer Depression Fibromyalgia Brother TIA (transient ischemic attack) Skin cancer Colon cancer Sister Hypothyroidism Sister Hypothyroidism Breast cancer Diabetes Hypertension Brother Prostate cancer Diabetes Hypertension Son Hypertension Daughter Hypertension Diabetes Social History Household Members: Spouse Housing: House Are you a primary director of patient care to a significant other at home: No Do you presently have visiting nurse or other home services: No Alcohol intake: never Patient Tobacco Use Status: Never used Tobacco service: No Current occupational status: unemployed and disabled Current occupation: right handed Physical Exam Vital Signs: BMI result Body Mass Index 34.5 Extrem Other: Well-healed right total knee incision No effusion 0-120 degrees motion Tenderness palpation over the pes anserinus bursa Results Reviewed Results Reviewed: I personally reviewed relevant radiographs. Right total knee arthroplasty in expected post operative position with no hardware complications or evidence of loosening Assessment & Plan Assessment & Plan (1) S/P total knee arthroplasty: Code(s): Z96.659 - Presence of unspecified artificial knee joint Category: Surgical Plan: Doing well status post knee replacement. (2) Pes anserine bursitis: Code(s): M70.50 - Other bursitis of knee, unspecified knee Category: Medical Plan: Pes anserinus bursitis. She was relieved that this was not directly related to her total knee replacement. I recommend stretching and maintaining daily activity. We discussed injections. At this time she does not want any intervention. She will let me know her symptoms worsen. Orders: Orders XR knee standing BI Today M25.569 - Pain in unspecified knee Coding Level of Care Code Est Pt Level 3 (84618) Diagnoses S/P total knee arthroplasty Z96.659 Pes anserine bursitis M70.50
[2024-03-28 12:42] VITALS: BMI 34.5
== END 2024-03-28 16:00 ==
PROVIDERS: PCP Internal Medicine; Visit Provider Orthopaedic Surgery
DX: M70.51 Other bursitis of knee, right knee (principal); Z96.651 Presence of right artificial knee joint
CPT/HCPCS: 99213

== ENCOUNTER 2024-06-17 14:31 | Outpatient (AMB) | payer OTHER, SELFPAY ==
--- NOTE | 2024-06-17 14:46 | MHC.OFFVIS ---
Vital Signs 06/17/24 14:56 Height 5 ft 6 in Weight 217 lb BMI 35.0 BP 124/82 Blood Pressure Location Rt brachial Position Sitting Pulse 64 Pulse Source Pulse Oximeter Pulse Oximetry (%) 99 Oxygen Delivery Method Room Air Intake Visit Reasons: 6 mnts f/u for headaches-Unable to lvm Intake Note: Patient presents for 6 month follow up headaches. patient's headaches are better but patient states she's not sleeping well. Allergies Penicillins [PCN] Allergy (Unknown, Verified 06/17/24 14:58) RASH, ITCHINESS pentoxifylline [From Trental] Allergy (Unknown, Verified 06/17/24 14:58) Unknown oxycodone [From Percocet] Allergy (Verified 06/17/24 14:58) vomiting HPI Comments Details: 59-yr-old female presents for f/u visit. Pt denies any significant interval medical changes. Pt reports she has been feeling much better. She is sleeping better. Denies recent dizziness, headaches. Denies vision changes, hearing changes, falls. She is complaint w/ Amitriptyline. She is working w/ her therapist and psychiatrist on relaxation strategies. Baseline headcahe characteristics: Moderate-Severe pressure in the back of head a/w room spinning dizziness and seeing spots with her eyes closed. [facility] Medical History (Updated 06/17/24 @ 15:49 by MAYRA Haro) Neuropathy Mental health disorder Hypothyroidism COVID-19 vaccine series completed Fibromyalgia Arthritis Bipolar 1 disorder Anxiety and depression Primary localized osteoarthritis of right knee High cholesterol Surgical History History of bariatric surgery History of right oophorectomy History of bunionectomy of both great toes History of arthroscopy of right knee Hx of hysterectomy History of shoulder surgery Family History Mother CAD (coronary artery disease) Diabetes Hypertension Alcohol abuse Father CAD (coronary artery disease) Diabetes Sister History of thyroid disorder Hypertension Breast cancer Depression Fibromyalgia Brother TIA (transient ischemic attack) Skin cancer Colon cancer Sister Hypothyroidism Sister Hypothyroidism Breast cancer Diabetes Hypertension Brother Prostate cancer Diabetes Hypertension Son Hypertension Daughter Hypertension Diabetes Social History Household Members: Spouse Housing: House Are you a primary chiropractic care to a significant other at home: No Do you presently have visiting nurse or other home services: No Alcohol intake: never Patient Tobacco Use Status: Never used Tobacco service: No Current occupational status: unemployed and disabled Current occupation: right handed Physical Exam Vital Signs: Last Vital Signs Pulse 64 06/17/24 14:56 BP 124/82 06/17/24 14:56 Pulse Ox 99 06/17/24 14:56 Oxygen Delivery Method Room Air 06/17/24 14:56 BMI result Body Mass Index 35.0 Const General: cooperative and no acute distress Orientation/consciousness: patient oriented x3 Resp Effort & Inspection: normal respiratory effort and able to speak in complete sentences Neuro General: patient oriented x3 Cranial nerves: Yes CN's II-XII intact bilaterally Cognition (Neuro): normal cognition Gait exam (Neuro): Normal gait present Motor exam (neuro): 5/5 motor strength present throughout Coordination: [id number] test normal, tandem gait normal and Romberg test negative Psych Appearance: grossly normal Mental Status: mental status grossly normal Speech and movement: Normal speech and movement present Affect: normal affect Attitude: cooperative Assessment & Plan Assessment & Plan (1) Headache: Code(s): R51.9 - Headache, unspecified Category: Medical (2) Dizziness: Code(s): R42 - Dizziness and giddiness Category: Medical (3) Abnormal brain MRI: Code(s): R90.89 - Other abnormal findings on diagnostic imaging of central nervous system Category: Medical Plan 2022, Brain MRI w/wo- No acute intracranial process. Probable arachnoid cyst with mild associated mass effect along the subjacent left cerebellum. 0.9 cm thinly septated nonenhancing cystic lesion within the anterior right temporal periventricular white matter with adjacent gliosis most suggestive of a prominent perivascular space. Will repeat barin MRI in 1 yr to assess stability. ? Continue Amitriptyline qhs. Continue Tylenol prn. ? ?f/u in 6 months or sooner prn. Coding Level of Care Code Est Pt Level 4 (77636) Diagnoses Headache R51.9 Dizziness R42 Abnormal brain MRI R90.89
[2024-06-17 14:56] VITALS: BP 124/82; PULSE 64; O2SAT 99; BMI 35.0
== END 2024-06-17 15:32 | disposition home or self-care (01) ==
PROVIDERS: PCP Internal Medicine; Visit Provider Nurse Practitioner Family
DX: R51.9 Headache, unspecified (principal); R42 Dizziness and giddiness; R90.89 Other abnormal findings on diagnostic imaging of central nervous system
CPT/HCPCS: 99214

== ENCOUNTER → 2024-06-17 14:31 | Outpatient (BNVA) | payer OTHER, SELFPAY | PROVIDERS: PCP Internal Medicine; Visit Provider Nurse Practitioner Family | DX: R51.9 Headache, unspecified (principal); R42 Dizziness and giddiness; R90.89 Other abnormal findings on diagnostic imaging of central nervous system | CPT/HCPCS: 99212 ==

== ENCOUNTER 2025-06-12 14:31 | Outpatient (AMB) | payer OTHER, SELFPAY ==
[2025-06-12 14:47] VITALS: BP 120/70; PULSE 59; O2SAT 98; BMI 28.6
--- NOTE | 2025-06-12 14:47 | A.OFFVIS_ITS ---
Vital Signs 06/12/25 14:47 Height 5 ft 6 in Weight 177 lb BMI 28.6 BP 120/70 Blood Pressure Location Rt brachial Position Sitting Pulse 59 Pulse Source Pulse Oximeter Pulse Oximetry (%) 98 Oxygen Delivery Method Room Air Intake Visit Reasons: Follow up Intake Note: Patient presents for 6 month follow up headaches. patient's headaches are better but patient states she's not sleeping well. Environmental Sustainability Manager Required: Yes Environmental Sustainability Manager Name: Dwain Moscoso Accompanied by: Self / Same As Patient Allergies Penicillins (PCN) Allergy (Unknown, Verified 06/12/25 14:49) RASH, ITCHINESS pentoxifylline (From Trental) Allergy (Unknown, Verified 06/12/25 14:49) Unknown oxycodone (From Percocet) Allergy (Verified 06/12/25 14:49) vomiting Medication List - Last Reconciled 06/12/25 by MAYRA Haro acetaminophen 650 mg (2 x 325 mg) PO Q6H PRN 30 days amitriptyline 50 mg PO BEDTIME aripiprazole 1 tab PO DAILY docusate sodium 100 mg PO DAILY ferrous sulfate 324 mg PO BID [Grab Bar As directed] lamotrigine 1 tab PO BEDTIME nystatin topical BID PRN tirzepatide (weight loss) (Zepbound) 10 mg subcut QWEEK valacyclovir 1,000 mg PO Q8H 7 days walker Folding Front wheeled walker zolpidem 5 mg PO BEDTIME PRN HPI Comments Details: 59-yr-old female presents for f/u visit. Pt denies any significant interval medical changes. Patient reports she is having couple of headaches per week, lasting 1 hour after using Tylenol and rest Reports in the lab month or so, she is noticing increased blurry distant vision without her glasses, which corrects upon application of her glasses Also reports ear fullness, some dry eye, dry throat bowels, allergies symptoms. Denies recent falls. Reports sleep difficulties, particularly sleep initiation due to ruminating thoughts. Endorses nocturnal leg cramps and BLE varicose veins. Denies leg cramps when walking. States her psychiatrist has reduced her zolpidem to 20 days per month. She always wakes up at 06:00. She denies restless leg legs, nocturnal leg twitching. She continues to work w/ her therapist and psychiatrist on relaxation strategies. She is complaint w/ Amitriptyline. She is taking Tylenol 500mg, 1 tab tid when the pain is worse. Baseline headache characteristics: Moderate-Severe pressure in the back of head a/w room spinning dizziness and seeing spots with her eyes closed. [facility] Medical History (Updated 06/12/25 @ 16:47 by MAYRA Haro) Neuropathy Mental health disorder Hypothyroidism COVID-19 vaccine series completed Fibromyalgia Arthritis Bipolar 1 disorder Anxiety and depression Primary localized osteoarthritis of right knee High cholesterol Surgical History History of bariatric surgery History of right oophorectomy History of bunionectomy of both great toes History of arthroscopy of right knee Hx of hysterectomy History of shoulder surgery Family History Mother CAD (coronary artery disease) Diabetes Hypertension Alcohol abuse Father CAD (coronary artery disease) Diabetes Sister History of thyroid disorder Hypertension Breast cancer Depression Fibromyalgia Brother TIA (transient ischemic attack) Skin cancer Colon cancer Sister Hypothyroidism Sister Hypothyroidism Breast cancer Diabetes Hypertension Brother Prostate cancer Diabetes Hypertension Son Hypertension Daughter Hypertension Diabetes Social History Household Members: Spouse Housing: House Are you a primary aged or disabled carer to a significant other at home: No Do you presently have visiting nurse or other home services: No Alcohol intake: never Patient Tobacco Use Status: Never used Tobacco service: No Current occupational status: unemployed and disabled Current occupation: right handed Physical Exam Vital Signs: Last Vital Signs Pulse 59 06/12/25 14:47 BP 120/70 06/12/25 14:47 Pulse Ox 98 06/12/25 14:47 Oxygen Delivery Method Room Air 06/12/25 14:47 BMI result Body Mass Index 28.6 Const General: cooperative and no acute distress Orientation/consciousness: patient oriented x3 Resp Effort & Inspection: normal respiratory effort and able to speak in complete sentences Neuro General: patient oriented x3 Cranial nerves: Yes CN's II-XII intact bilaterally Cognition (Neuro): normal cognition Gait exam (Neuro): Normal gait present Motor exam (neuro): 5/5 motor strength present throughout Psych Appearance: grossly normal Mental Status: mental status grossly normal Speech and movement: Normal speech and movement present Affect: normal affect Attitude: cooperative Assessment & Plan Assessment & Plan (1) Headache: Code(s): R51.9 - Headache, unspecified Category: Medical Qualifiers: Headache type: other headache syndrome Qualified Code(s): G44.89 - Other headache syndrome (2) Dizziness: Code(s): R42 - Dizziness and giddiness Category: Medical (3) Abnormal brain MRI: Code(s): R90.89 - Other abnormal findings on diagnostic imaging of central nervous system Category: Medical Plan 2022, Brain MRI w/wo- No acute intracranial process. Probable arachnoid cyst with mild associated mass effect along the subjacent left cerebellum. 0.9 cm thinly septated nonenhancing cystic lesion within the anterior right temporal periventricular white matter with adjacent gliosis most suggestive of a prominent perivascular space. Patient is advised to undergo follow-up brain MRI with and without contrast to assess stability of probable arachnoid cyst and right temporal periventricular white matter cystic lesion. Start magnesium 400 mg daily at bedtime, may help with cramps in headache prevention. ? * If ineffective, consider checking iron studies/ferritin levels Continue Amitriptyline daily at bedtime for headache prevention and sleep promotion. Continue Tylenol 500-1000 mg every 6 hours as needed, max of 3000 mg per day. ? Reviewed simple sleep hygiene measures patient may employ to improve sleep quality. Maintain a consistent wake help schedule S face. Would CBT-insomnia sleep deprivation practices due to history of bipolar with manic episodes. Will follow-up upon review of above and patient to follow-up in clinic in 6 months or sooner prn. Orders: Orders MR head/brain wo/w con Today H53.8 - Other visual disturbances, R51.9 - Headache, unspecified, R90.89 - Other abnormal findings on diagnostic imaging of central nervous system Medications: New magnesium oxide may hold for loose stools 400 mg PO BEDTIME 30 tabs 6RF 30 days Coding Level of Care Code Est Pt Level 4 (17409) Diagnoses Other headache syndrome G44.89 Headache type: other headache syndrome Dizziness R42 Abnormal brain MRI R90.89
--- OUTSIDE RECORDS SUMMARY | 2025-06-12 15:22 | XMS_ITS | Patient Health Record ---
Author Organization [facility] Address [address] [place] [address] Care Team Providers Care Nurse Plastics Name Role Phone PITER HELTON MD Primary Care Provider Unavailabl e Allergies Allergen (clinical drug ingredient) Drug/Non Drug Allergy documented on EMR Reaction Allergy Type Onset Date Status penicillamine Penicillamine Unknown Drug Allergy 0 Active Reason For Referral No Information Medications Medication SIG (Take, Route, Frequency, Duration) Notes Start Date End Date Status Pravastatin Sodium 40 MG 1 tablet Orally Once a day Active Gabapentin 300 MG 2 tablets Orally 3 TIMES DAILY stopped 4 months ago Not-Taking LaMICtal 150 MG 1 tablet Orally twice daily Active Abilify 50mg 1 tablet Orally Once a day Active Ambien 20mg 1 tablet at bedtime Active traMADol HCl 50 MG 2 tablets Orally 4 times a day as needed Active Voltaren 20% as directed Transdermal Active Zolpidem Tartrate 10 MG 1 tablet at bedtime as needed Orally Once a day Active ARIPiprazole 20 MG 1 tablet Orally Once a day Active lamoTRIgine 150 MG 1 tablet Orally twice daily Active Flonase 50MCG 1 spray BID Acti ve Social History Tobacco Use: Social History Observation Description Date Details (start date - stop date) Never Smoker NA - NA Tobacco Use/Smoking Question Answer Notes Are you a nonsmoker Additional Findings: Tobacco Non-User Current no n-smoker Alcohol Screen (Audit-C) Question Answer Notes Did you have a drink containing alcohol in the p ast year? No Points 0 Interpretation Negative Section Notes: mother and father smoke mother and father smoke mother and father smoke mother and father smoke mother and father smoke mother and father smoke mother and father smoke mother and father smoke Problems Problem Type SNOMED Code ICD Code Onset Dates Problem Status W/U Status Risk Notes Problem Osteoarthritis of knee (193720475) Bilateral primary osteoarthritis of knee (M17.0) Active confirmed Problem Primary osteoarthritis (362261842) Unilateral primary osteoarthritis, right knee (M17.11) Active confirmed Problem Osteoarthritis of knee (530220322) Unilateral primary osteoarthritis, left knee (M17.12) Active confirmed Problem Lumbosacral spondylosis without myelopathy (79280631) Spondylosis without myelopathy or radiculopathy, lumbar region (M47.816) Active confirmed Plan Of Treatment No Information Insurance Providers Payer Name Payer Address Payer Phone Subscriber Number Group Number Insured Name Patient Relationship to Insured Coverage Start Date Coverage End Date [facility] [address] [address] [place] [address] [id number] [employer] BOB Self - patient is the insured Medical (General) History Medical History History ICD Code joint pain arthritis fibromyalgia bipolar Vericose veins with pain GERD Peripheral vascular disease Varicose vein of leg Obstructive sleep apnea Urinary incontience Hx of abnormal pap smear Surgical History Surgery Date(Month/Year) knee (Arthritis knee surg w/ meniscectomy med/lat with shaving 8 years ago right shoulder surgery removal of ovaries hysterectomy Hx of Hand surgery removal of glomus loretta or resection of thumb
--- OUTSIDE RECORDS SUMMARY | 2025-06-12 15:22 | XMS_ITS | Clinical Summary ---
Author Organization [facility] Address [address] [place] [id number] Phone Care Team Providers Care Route Clerk Name Role Phone Unknown, Unknown Primary Care Provider Clayton rutherford Allergies Active Allergy Reactions Criticality Noted Date Comments Oxycodone 03/02/2024 Penicillins Itching,Rash Low 03/29/2019 Pentoxifylline Nausea And Vomiting 05/15/2019 Medications ARIPiprazole (ABILIFY) 10 MG tablet Take 1 tablet by mouth every morning. 02/09/2024 Active lamoTRIgine (LAMICTAL) 150 MG IMMEDIATE release tablet Take 150 mg by mouth. 01/13/2024 Active zolpidem (AMBIEN) 5 MG tablet Take 5 mg by mouth nightly at bedtime as needed. 02/09/2024 Active Active Problems Problem Noted Date Diagnosed Date Abdominal pannus 03/02/2024 Intertrigo 03/02/2024 Family History Medical History Relation Comments Hypertension Father Heart disease Mother Hypertension Mother Relation Status Comments Father Mother Social History Tobacco Use Types Packs/Day Years Used Date Smoking Tobacco: Never Smokeless Tobacco: Never Tobacco Cessation:Counseling Given: Not Answered Alcohol Use Standard Drinks/Week Comments Not Currently 0 (1 standard drink = 0.6 oz pur e alcohol) Education Answer Date Recorded Are you interested in more education? Not on aniya e 02/23/2024 Are you concerned about learning? Not on file 02/23/2024 No 02/23/2024 No 02/23/2024 Digital Access Answer Date Recorded No 02/23/2024 No 02/23/2024 Reliable internet access at home? Not on file 02/23/2024 Device with a working camera? Not on file Comments Unknown Sex and Gender Information Value Date Recorded Sex Assigned at Not on file Legal Sex Female 3:09 PM EDT Gender Identity Not on file Sexual Orientation Not on file Last Filed Vital Signs Vital Sign Reading Time Taken Comments Blood Pressure 118/62 03/02/2024 1:58 PM EDT Pulse 66 03/02/2024 1:58 PM EDT Temperature - - Respiratory Rate - - Oxygen Saturation - - Inhaled Oxygen Concentration - - Weight 97.1 kg (214 lb) 03/02/2024 1:58 PM EDT Height 160.7 cm (5' 3.25 ) 03/02/2024 1:58 PM ED T Body Mass Index 37.61 03/02/2024 1:58 PM EDT Plan of Treatment Health Maintenance Due Date Last Done Comments LIPID PANEL 1967 DEPRESSION SCREENING 1979 HEPATITIS C SCREENING 1985 HIV ONE-TIME SCREENING (18-6 5 YEARS) 1985 SCREENING FOR DIABETES 2002 MAMMOGRAM 2007 COLOGUARD 2012 COLONOSCOPY 2012 COLORECTAL CANCER SCREENING 2012 FIT TEST 2012 FOBT 2012 SIGMOIDOSCOPY 2012 VIRTUAL COLONOSCOPY 2012 PNEUMOCOCCAL VACCINES (50+ y ears) (1 of 1 - PCV) 2017 ZOSTER VACCINES (1 of 2) 2017 Adult Td,Tdap Booster 03/16/2022 03/16/2012 COVID-19 VACCINE (1 - 2023-2 5 season) 2024 SMOKING STATUS SCREENING (On ce After 26 Yrs) Completed 03/02/2024 HEPATITIS A VACCINES Aged Out No long er eligible based on patient's age to complete this topic HIB VACCINES Aged Out No longer eligi ble based on patient's age to complete this topic MENINGOCOCCAL VACCINES (ACWY) Aged Out No longer eligible based on patient's age to complete this topic MENINGOCOCCAL VACCINES (B) Aged Out N o longer eligible based on patient's age to complete this topic Medical Devices Not on file Insurance [employer] [place] [address] [place], [place] [address] [facility] Free & Clear [employer] Care Teams Route Clerk Relationship Specialty Start Date End Date Unknown, Unknown, PCP - General 02/23/24 Additional Source Comments The information contained in this document represents components of the legal health record. It is not the complete legal health record.[facility]
--- OUTSIDE RECORDS SUMMARY | 2025-06-12 15:22 | XMS_ITS | Clinical Summary ---
Author Organization [address] [place] [address] Address [address] [place] [address] Phone Care Team Providers Care Software Architect Name Role Phone Chavez Vasquez MD Primary Care Provider [phone] Allergies Active Allergy Reactions Criticality Noted Date Comments Oxycodone-Acetaminophen 07/01/2019 Penicillins Itching,Rash 03/29/2019 Pentoxifylline Nausea And Vomiting 05/15/2019 Medications nystatin (MYCOSTATIN) 100,000 unit/gram powder Apply under pannus twice daily as needed to prevent rash 3 Active amitriptyline (ELAVIL) 25 mg tablet 1 Active ARIPiprazole (ABILIFY) 20 mg tablet TK 1 T PO ONCE A DAY 9 Active lamoTRIgine (LaMICtal) 150 mg tablet TAKE 1 TABLET PO BID 9 Active zolpidem (AMBIEN) 10 mg tablet Take 1 tablet (10 mg total) by mouth at bedtime as needed for sleep. Active tirzepatide, weight loss, (Zepbound) 10 mg/0.5 mL injection Inject 0.5 mL (10 mg total) under the skin every 7 (seven) days. 2 mL 5 Active ergocalciferol (VITAMIN D-2) 1,250 mcg (50,000 unit) capsule Take 1 capsule (50,000 Units total) by mouth 1 (one) time per week. 4 each 2 5 08/10/20 25 Active levothyroxine (SYNTHROID, LEVOTHROID) 75 mcg tablet Take 1 tablet (75 mcg total) by mouth 1 (one) time each day. 30 tablet 4 5 Active B complex tablet Take 1 tablet by mouth 1 (one) time each day. 30 tablet 11 5 05/19/20 26 Active levothyroxine (SYNTHROID, LEVOTHROID) 50 mcg tablet Take 1 tablet (50 mcg total) by mouth 1 (one) time each day. 30 each 2 5 05/15/20 25 Discontinu ed(Reorder ) levothyroxine (SYNTHROID, LEVOTHROID) 75 mcg tablet Take 1 tablet (75 mcg total) by mouth 1 (one) time each day. 30 tablet 4 5 05/15/20 25 Discontinu ed(Reorder ) Active Problems Problem Noted Date Diagnosed Date Bariatric surgery status 10/18/2024 Class 1 obesity due to exces s calories with serious comorbidity and body mass index (BMI) of 30.0 to 30.9 in adult 09/02/2024 Palpitations 02/27/2023 Overview (09/02/2024): Last Assessment & Plan: The patient has been experiencing episodes of palpitations. Recent laboratory test showed a normal TSH. At this point, we will order a Holter monitor to evaluate for any underlying arrhythmias as a cause of her symptoms. We will also order an echocardiogram to rule out any significant structural heart disease. Assessment & Plan (11/04/2024 9:17 AM EST): No further episodes of palpitations have been reported. She underwent laboratory testing which showed normal TSH. She also underwent a Holter monitor which showed no sustained arrhythmias and an echocardiogram which showed normal LV function and no significant valvular disease. We reviewed these results today. She will notify us of any changes in her symptoms. We reviewed the possible triggers of palpitations including caffeine consumption, alcohol consumption, cigarette smoking, inadequate sleeping patterns, and stress. At this point, the patient will attempt to avoid the usual triggers. Orders: ECG 12 lead Dizziness 02/24/2023 Acute cystitis without hematuria 02/11/2023 Overview (09/02/2024): Last Assessment & Plan: Bactrim appropriate for treatment of suspected UTI, as well. Urine culture pending. Superficial postoperative wound infection 2022 Overview (09/02/2024): Last Assessment & Plan: I reviewed exam findings, labs and imaging with the patient and her daughter. Discussed concern for superficial postoperative wound infection. Wound culture collected. Recommend Bactrim DS BID x10 days, which GABRIELA Mccormack has prescribed to her pharmacy. Instructed patient to keep incision clean and dry. Reviewed s/sx concerning for worsening infection and reasons to call or return to the ED. I discussed the CT findings with surgical Gertrude OCHOA. As patient has normal bowel function, no concern for SBO or ileus at this time. She is scheduled for post-op follow-up with Dr. Santacruz on Thursday02/16/23, instructed patient to keep this appointment. She also has follow-up scheduled with general surgery. All questions answered. Hyperlipidemia 08/01/2020 Hypothyroidism 03/02/2020 Varicose veins with pain 08/12/2019 Peripheral polyneuropathy 08/08/2019 Peripheral vascular disease ([facility] V24) 2018 Bipolar affective disorder ([facility] V24, [facility] V28) 04/13/2019 GERD (gastroesophageal reflux disease) 9 THERESE (obstructive sleep apnea) 04/13/2019 Overview (09/02/2024): 2017 chose against CPAP Urinary incontinence 04/13/2019 Varicose vein of leg 04/13/2019 Arthritis 03/29/2019 Fibromyalgia 03/29/2019 Encounters Date Type Department Care Team Description 05/11/2025 9:15 AM EDT Lab Draw Station - [address] [facility] [address] [place] [address] 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; Hypothyroidism, unspecified type; Class 1 obesity due to excess calories with serious comorbidity and body mass index (BMI) of 30.0 to 30.9 in adult; Bariatric surgery status 05/11/2025 8:45 AM EDT Office Visit Bariatric Surgery - [place] [address] [place] [address] Liana Villegas PA Class 1 obesity due to excess calories with serious comorbidity and body mass index (BMI) of 30.0 to 30.9 in adult (Primary Dx); Bariatric surgery status 05/03/2025 Telephone Bariatric Surgery [facility] [address] [phone] Jenn Boucher MD Med Refill (Zepbound) 04/05/2025 Telephone Bariatric Surgery [address] [phone] Liana Villegas PA Med Refill (Zepbound w/titration ) 03/28/2025 9:30 AM EDT Office Visit Adult Medicine [address] [phone] Chavez Vasquez MD Hyperlipidemia, unspecified hyperlipidemia type (Primary Dx); Hypothyroidism, unspecified type; Class 1 obesity due to excess calories with serious comorbidity and body mass index (BMI) of 33.0 to 33.9 in adult from Last 3 Months Immunizations Name Administration Dates Next Due Influenza Quadravalent, MDCK , 0.5ml, preservative free (Flucelvax) 6mo and older 10/20/2022,07/31/2020,09/27/2019 Influenza trivalent, 0.5mL, preservative free (Fluarix; FluLaval; Fluzone) ages 6mo and older (Afluria) 3 years and older 08/30/2018 Tdap Tetanus diptheria acell ular pertussis (Boostrix; Adacel) 7yo and older 03/16/2012 Surgical History Surgery Date Site/Laterality Comments SECTION PROCEDURE: HISTORICAL HYSTERECTOMY PROCEDURE: HISTORICAL HYSTERECTOMY; COMMENT: w/1 ovary removed OTHER SURGICAL HISTORY 03/2013 Right PROCEDURE: [place] ARTHRS KNE SURG W/MENISCECTOMY MED/LAT W/SHVG HAND SURGERY 2016 Left PROCEDURE: HISTORICAL HAND SURGERY; COMMENT: glomus tumor resection of thumb OTHER SURGICAL HISTORY 04/26/2021 PROCEDURE: HISTORY OTHER; COMMENT: Sleeve gastrectomy OTHER SURGICAL HISTORY N/A PROCEDURE: [place] EGD FLX TRNSORL W/DPLMNT NTRGSTR BARIATRIC BALO; COMMENT: 2020 BOWEL RESECTION 2022 PROCEDURE: HISTORICAL BOWEL RESECTION; COMMENT: small bowel resection OOPHORECTOMY 2022 PROCEDURE: [place] OOPHORECTOMY PARTIAL/TOTAL UNI/BI; COMMENT: left Medical History Medical History Date Comments Fibromyalgia DX:Fibromyalgia Arthritis DX:Arthritis Bipolar affective disorder ( [facility], [facility] V28) 04/13/2019 DX:Bipolar affective disorde r ([facility]) History of abnormal cervical Pap smear 03/29/2019 DX:History of abnormal cervical Pap smear GERD (gastroesophageal reflux disease) 04/13/2019 DX:GERD (gastroesophageal reflux disease) Morbid obesity with BMI of 4 0.0-44.9, adult ([facility] V24, [facility] V28) 04/13/2019 DX:Morbid obesity wit h BMI of 40.0-44.9, adult ([facility]) Varicose vein of leg 04/13/2019 DX:Varicose vein of leg Urinary incontinence 04/13/2019 DX:Urinary incontinence THERESE (obstructive sleep apnea) 04/13/2019 DX :THERESE (obstructive sleep apnea); COMMENT: 2016 chose against CPAP COVID-19 virus detected 04/13/2020 DX:COVID -19 virus detected; COMMENT: Tested at [facility] Hyperlipidemia LDL goal <160 08/01/2020 DX: Hyperlipidemia LDL goal <160 Family History Medical History Relation Name Comments Other: Stroke, skin cancer Brother 1 c olon cancer Prostate cancer Brother 2 Coronary artery disease Father diab etes Coronary artery disease Mother diab etes, HTN, alcohol abuse Thyroid disease Sister 1 HTN, [place] [address], depression, Fibromyalgia Hyperthyroidism Sister 2 Other: Hypothyroid, breast cancer Sister 3 Relation Name Status Comments Brother 1 Brother 2 Father Mother Sister 1 Sister 2 Sister 3 Social History Tobacco Use Types Packs/Day Years Used Date Smoking Tobacco: Never Smokeless Tobacco: Never Tobacco Cessation:Counseling Given: Not Answered Alcohol Use Standard Drinks/Week Comments No 0 (1 standard drink = 0.6 oz pur e alcohol) Comments Unknown Sex and Gender Information Value Date Recorded Sex Assigned at Not on file Legal Sex Female 5:20 AM EST Gender Identity Not on file Sexual Orientation Not on file Obstetrics History Last Filed Vital Signs Vital Sign Reading Time Taken Comments Blood Pressure 115/74 05/11/2025 8:50 AM EDT Pulse 61 05/11/2025 8:50 AM EDT Temperature 35.2 C (95.4 F) 05/11/2025 8:50 AM EDT Respiratory Rate 16 03/28/2025 9:13 AM EDT Oxygen Saturation 97% 11/04/2024 8:38 AM EST Inhaled Oxygen Concentration - - Weight 85.7 kg (189 lb) 05/11/2025 8:50 AM EDT Height 167.6 cm (5' 6 ) 05/11/2025 8:50 AM EDT Body Mass Index 30.51 05/11/2025 8:50 AM EDT Plan of Treatment Upcoming Encounters Date Type Department Care Team (Late st Contact Info) Description 07/07/2025 9:30 AM EDT Office Visit Adult Medicine [address] [phone] Chavez Vasquez MD [address] [place] [phone] 07/13/2025 8:45 AM EDT Office Visit Orthopedic Surgery [facility] [address] [phone] [address], DPM [address] [address] 08/08/2025 11:15 AM EDT Office Visit Bariatric Surgery [facility] [address] [phone] Liana Villegas PA [address] [address] 08/31/2025 10:00 AM EDT Office Visit Endocrinology [address] [phone] Marysol Steinberg MD [address] [place] [address] Health Maintenance Due Date Last Done Comments Hepatitis B Vaccines (1 of 3 - 19+ 3-dose series) 1986 Cervical Cancer Screening: Pap Smear 1988 Pneumococcal Vaccine: 50+ Years (1 of 1 - PCV) 2017 Zoster Vaccines (1 of 2) 2017 DTaP,Tdap,and Td Vaccines (2 - Td or Tdap) 03/16/2022 03/16/2012 Social Influencers of Health Screening 11/01/2022 COVID-19 Vaccine ( season) 2024 08/28/2023, 11/02/2022, 11/12/2021, Additional history exists Depression Screening 11/23/2024 Influenza Vaccine (#1) 2025 , 10/20/2022, 09/17/2021, Additional history exists Breast Cancer Screening 01/21/2026 01/22/20, 01/19/2023, 12/16/2021, Additional history exists Colorectal Cancer Screening: Colonoscopy 05/31/2028 05/31/2018 Cholesterol Screening (Lipid Panel) 03/24/2030 03/24/2025, 01/31/2025, 11/02/2024, Additional history exists HIV Screening Completed 09/27/2019 Hepatitis C Screening Completed 09/27/2019 HIB Vaccines Aged Out No longer eligi ble based on patient's age to complete this topic HPV Vaccines Aged Out No longer eligi ble based on patient's age to complete this topic Hepatitis A Vaccines Aged Out No long er eligible based on patient's age to complete this topic IPV Vaccines Aged Out No longer eligi ble based on patient's age to complete this topic MMR Vaccines Aged Out No longer eligi ble based on patient's age to complete this topic Meningococcal ACWY Vaccine Aged Out N o longer eligible based on patient's age to complete this topic Meningococcal B Vaccine Aged Out No l onger eligible based on patient's age to complete this topic RSV Immunization Patients Under 20 months Aged Out No longer eligible based on patient's age to complete this topic Varicella Vaccines Aged Out No longer eligible based on patient's age to complete this topic Goals Goal Patient Goal Type Associated Problems Recent Progress Patient-Stated? Author LTGs (x8 visits) General Yes Madeline Lara, PT Note: Pt will improve shoulder flexion and abduction AROM to >/= 165 degrees for overhead reaching for ADL completion Pt will be able to complete L cervical sidebending and rotation with </= 1pt increase in discomfort Pt will decrease upper trap myofascial restriction to mild Pt will increase RUE shouler flexion, abduction, ER and IR strength to >/= 4/5 for shoulder strength and stability for lifting and carrying tasks Pt will endorse being able to complete ADLs with </= 1 pt increase in discomfort for x1 week in duration Pt will be independent with HEP for strengthening, range of motion, and stability Procedures Procedure Name Priority Date/Time Associated Diagnosis Comments TRIIODOTHYRONINE FREE Routine 05/11/2025 9:12 AM EDT Hypothyroidism, unspecified type FREE THYROXINE WITH REFLEX TO FREE TRIIODOTHYRONINE Routine 05/11/2025 9:12 AM EDT Hypothyroidism, unspecified type FOLATE Routine 05/11/2025 9:12 AM EDT Class 1 obesity due to excess calories with serious comorbidity and body mass index (BMI) of 30.0 to 30.9 in adult Bariatric surgery status SELENIUM SERUM Routine 05/11/2025 9:12 AM EDT Class 1 obesity due to excess calories with serious comorbidity and body mass index (BMI) of 30.0 to 30.9 in adult Bariatric surgery status VITAMIN B1 Routine 05/11/2025 9:12 AM EDT Class 1 obesity due to excess calories with serious comorbidity and body mass index (BMI) of 30.0 to 30.9 in adult Bariatric surgery status VITAMIN B12 Routine 05/11/2025 9:12 AM EDT Class 1 obesity due to excess calories with serious comorbidity and body mass index (BMI) of 30.0 to 30.9 in adult Bariatric surgery status VITAMIN B6 Routine 05/11/2025 9:12 AM EDT Class 1 obesity due to excess calories with serious comorbidity and body mass index (BMI) of 30.0 to 30.9 in adult Bariatric surgery status VITAMIN D 25 HYDROXY Routine 05/11/2025 9:12 AM EDT Class 1 obesity due to excess calories with serious comorbidity and body mass index (BMI) of 30.0 to 30.9 in adult Bariatric surgery status ZINC Routine 05/11/2025 9:12 AM EDT Class 1 obesity due to excess calories with serious comorbidity and body mass index (BMI) of 30.0 to 30.9 in adult Bariatric surgery status IRON AND TIBC Routine 05/11/2025 9:12 AM EDT Class 1 obesity due to excess calories with serious comorbidity and body mass index (BMI) of 30.0 to 30.9 in adult Bariatric surgery status COMPREHENSIVE METABOLIC PANEL Routine 05/11/2025 9:12 AM EDT Class 1 obesity due to excess calories with serious comorbidity and body mass index (BMI) of 30.0 to 30.9 in adult Bariatric surgery status THYROID STIMULATING HORMONE WITH REFLEX TO FREE T4 AND FREE T3 Routine 05/11/2025 9:12 AM EDT Hypothyroidism, unspecified type THYROID STIMULATING HORMONE Routine 05/11/2025 9:12 AM EDT 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 TRIIODOTHYRONINE FREE Routine 03/24/2025 7:42 AM EDT Hypercholesterolemia FREE THYROXINE WITH REFLEX TO FREE TRIIODOTHYRONINE Routine 03/24/2025 7:42 AM EDT Hypercholesterolemia LIPID PANEL WITH REFLEX TO DIRECT LDL Routine 03/24/2025 7:42 AM EDT Subclinical hypothyroidism THYROID STIMULATING HORMONE WITH REFLEX TO FREE T4 AND FREE T3 Routine 03/24/2025 7:42 AM EDT Hypercholesterolemia CALIXTO SCREENING DIGITAL Routine 01/22/2024 4:07 PM EST Encounter for screening mammogram for malignant neoplasm of breast HEPATITIS C SCREENING Routine 09/27/2019 HIV SCREENING Routine 09/27/2019 COLONOSCOPY Routine 05/31/2018 from Last 3 Months or Most Recently Relevant to Health Maintenance Results * (ABNORMAL) Thyroid stimulating hormone with reflex to free t4 and free t3 (05/11/2025 9:12 AM EDT) Only the most recent of2 resultswithin the time period is included. [facility] TSH 4.78(H) 0.40 - 4.00 mcIU/mL LAB CHEMISTRY METHOD 05/11/2025 3:52 PM EDT [facility] Blood Venous blood specimen / Unknown Venipuncture / Unknown 05/11/2025 9:12 AM EDT 05/11/2025 9:12 AM EDT Chavez Vasquez MD LAB BLOOD ORDERABLES Final Result Performing Organization Address [facility] de Phone Number [facility] [address] [place] [address], [place] [phone] * Free thyroxine with reflex to free triiodothyronine (05/11/2025 9:12 AM EDT) Only the most recent of2 resultswithin the time period is included. [facility] Free T4 1.35 0.70 - 1.80 ng/dL LAB CHEMISTRY METHOD 05/11/2025 4:33 PM EDT [facility] Blood Venous blood specimen / Unknown Venipuncture / Unknown 05/11/2025 9:12 AM EDT 05/11/2025 9:12 AM EDT Chavez Vasquez MD LAB BLOOD ORDERABLES Final Result Performing Organization Address [facility]/ZIP Co de Phone Number [facility] [address] [place] [address], [place] [phone] * Iron and TIBC (05/11/2025 9:12 AM EDT) Iron 41 40 - 150 mcg/dL LAB CHEMISTRY METHOD 05/11/2025 3:49 PM EDT [facility] TIBC 252 250 - 450 mcg/dL LAB CHEMISTRY METHOD 05/11/2025 3:49 PM EDT [facility] Iron Saturation 16 15 - 50 % LAB CHEMISTRY METHOD 05/11/2025 3:49 PM EDT [facility] Blood Venous blood specimen / Unknown Venipuncture / Unknown 05/11/2025 9:12 AM EDT 05/11/2025 9:12 AM EDT Liana OCHOA LAB BLOOD ORDERABLES Final R esult Performing Organization Address City/[facility]/ZIP Co de Phone Number [facility] [address] [place] [address], [place] [phone] * Zinc (05/11/2025 9:12 AM EDT) Zinc 75 60 - 130 ug/dL 05/15/2025 1:18 PM EDT [facility] Comment: Elevated results may be due to sample collected in a non-certified trace element-free tube. This test was developed and the performance characteristics determined by [facility]. It has not been cleared or approved by the FDA. The laboratory is regulated under CLIA as qualified to perform high-complexity testing. This test is used for patient testing purposes. It should not be regarded as investigational or for research. Test performed at [facility], [address] , [place] [address] Jinny Mckeon MD, PhD - [employer] Blood Venous blood specimen / Unknown Venipuncture / Unknown 05/11/2025 9:12 AM EDT 05/11/2025 9:12 AM EDT Liana OCHOA LAB BLOOD ORDERABLES Final R esult Performing Organization Address City/[facility]/ZIP Co de Phone Number [facility] [address] [place] [address] * Selenium serum (05/11/2025 9:12 AM EDT) Selenium 132 63 - 160 mcg/L 05/14/2025 11:19 PM EDT [facility] Comment: This test was developed and its analytical performance characteristics have been determined by [facility] [place], [place]. It has not been cleared or approved by the U.S. Food and Drug Administration. This assay has been validated pursuant to the CLIA regulations and is used for clinical purposes. Test Performed by [facility], [facility], [address] [place] [address] Esau Vail M.D., Ph.D., Director of Laboratories , CLIA [id number] Blood Venous blood specimen / Unknown Venipuncture / Unknown 05/11/2025 9:12 AM EDT 05/11/2025 9:12 AM EDT Liana OCHOA LAB BLOOD ORDERABLES Final R esult [facility] [address] [place] [address] * (ABNORMAL) Vitamin D 25 hydroxy (05/11/2025 9:12 AM EDT) Vit D, 25-Hydroxy 20.7(L) 30.0 - 80.0 ng/mL LAB CHEMISTRY METHOD 05/11/2025 3:51 PM EDT [facility] Blood Venous blood specimen / Unknown Venipuncture / Unknown 05/11/2025 9:12 AM EDT 05/11/2025 9:12 AM EDT Liana OCHOA LAB BLOOD ORDERABLES Final R esult [facility] [address] [place] [address], * Triiodothyronine free (05/11/2025 9:12 AM EDT) Only the most recent of2 resultswithin the time period is included. T3, Free 295 230 - 420 pcg/dL LAB CHEMISTRY METHOD 05/11/2025 4:59 PM EDT [facility] Blood Venous blood specimen / Unknown Venipuncture / Unknown 05/11/2025 9:12 AM EDT 05/11/2025 9:12 AM EDT Chavez Vasquez MD LAB BLOOD ORDERABLES Final Result Performing Organization Address [facility]/ZIP Co de Phone Number [facility] [address] [place] [address], [place] [phone] * (ABNORMAL) Thyroid stimulating hormone (05/11/2025 9:12 AM EDT) Pathologist [facility] TSH 4.78(H) 0.40 - 4.00 mcIU/mL LAB CHEMISTRY METHOD 05/11/2025 3:52 PM EDT [facility] Blood Venous blood specimen / Unknown Venipuncture / Unknown 05/11/2025 9:12 AM EDT 05/11/2025 9:12 AM EDT Marysol Steinberg MD LAB BLOOD ORDERABLES Final Res ult Performing Organization Address [facility]/ZIP Co de Phone Number [facility] [address] [place] [address], [place] [phone] * (ABNORMAL) Vitamin B1 (05/11/2025 9:12 AM EDT) Pathologist [facility] Vitamin B1 Whole Blood 30(L) 38 - 122 ug/L 05/17/2025 6:42 AM EDT [facility] Comment: This test was developed and the performance characteristics determined by [facility]. It has not been cleared or approved by the FDA. The laboratory is regulated under CLIA as qualified to perform high-complexity testing. This test is used for patient testing purposes. It should not be regarded as investigational or for research. Test performed at [facility], [address] [place] [address] Jinny Mckeon MD, PhD - [employer] Blood Venous blood specimen / Unknown Venipuncture / Unknown 05/11/2025 9:12 AM EDT 05/11/2025 9:12 AM EDT Liana OCHOA LAB BLOOD ORDERABLES Final R esult Performing Organization Address City/[facility]/ZIP Co de Phone Number [facility] [address] [place] [address] * Vitamin B6 (05/11/2025 9:12 AM EDT) [facility] Vitamin B6 (Pyridoxine) Level 8 5 - 50 ug/L 05/16/2025 11:02 AM EDT [facility] Comment: This test was developed and the performance characteristics determined by [facility]. It has not been cleared or approved by the FDA. The laboratory is regulated under CLIA as qualified to perform high-complexity testing. This test is used for patient testing purposes. It should not be regarded as investigational or for research. Test performed at [facility], [address] [facility], [place] [address] Jinny Mckeon MD, PhD - [employer] Blood Venous blood specimen / Unknown Venipuncture / Unknown 05/11/2025 9:12 AM EDT 05/11/2025 9:12 AM EDT Liana OCHOA LAB BLOOD ORDERABLES Final R esult Performing Organization Address City/[facility]/ZIP Co de Phone Number [facility] [address] [place] [address] * Folate (05/11/2025 9:12 AM EDT) [facility] Folate 10.0 2.8 - 17.0 ng/ml LAB CHEMISTRY METHOD 05/11/2025 3:49 PM EDT [facility] Blood Venous blood specimen / Unknown Venipuncture / Unknown 05/11/2025 9:12 AM EDT 05/11/2025 9:12 AM EDT Liana OCHOA LAB BLOOD ORDERABLES Final R esult [facility] [address] [place] [address], [place] [phone] * Vitamin B12 (05/11/2025 9:12 AM EDT) Pathologist [facility] Vitamin B-12 291 250 - 900 pcg/mL LAB CHEMISTRY METHOD 05/11/2025 4:26 PM EDT [facility] Comment:Results verified by repeat testing Blood Venous blood specimen / Unknown Venipuncture / Unknown 05/11/2025 9:12 AM EDT 05/11/2025 9:12 AM EDT Liana OCHOA LAB BLOOD ORDERABLES Final R esult Performing Organization Address City/[facility]/ZIP Co de Phone Number [facility] [address] [place] [address], [place] [phone] * (ABNORMAL) Comprehensive metabolic panel (05/11/2025 9:12 AM EDT) Pathologist [facility] Sodium 145 133 - 145 mmol/L LAB CHEMISTRY METHOD 05/11/2025 3:49 PM EDT [facility] LAB Potassium 3.7 3.5 - 5.5 mmol/L LAB CHEMISTRY METHOD 05/11/2025 3:49 PM EDT [facility] Chloride 112(H) 96 - 110 mmol/L LAB CHEMISTRY METHOD 05/11/2025 3:49 PM EDT [facility] LAB CO2 26 21 - 32 mmol/L LAB CHEMISTRY METHOD 05/11/2025 3:49 PM EDT [facility] LAB Anion Gap 7 3 - 11 LAB CHEMISTRY METHOD 05/11/2025 3:49 PM [facility] LAB Glucose 78 70 - 100 mg/dL LAB CHEMISTRY METHOD 05/11/2025 3:49 PM [facility] LAB BUN 15 5 - 25 mg/dL LAB CHEMISTRY METHOD 05/11/2025 3:49 PM [facility] LAB Creatinine 0.61 0.50 - 1.10 mg/dL LAB CHEMISTRY METHOD 05/11/2025 3:49 PM [facility] LAB eGFR 104 >=60 mL/min/1. 73m2 LAB CHEMISTRY METHOD 05/11/2025 3:49 PM [facility] LAB Comment:Calculation based on the Chronic Kidney Disease Epidemiology Collaboration (CKD-EPI) equation refit without adjustment for race. BUN/Creatinine Ratio 24.6 LAB CHEMISTRY METHOD 05/11/2025 3:49 PM [facility] LAB Calcium 9.0 8.5 - 10.5 mg/dL LAB CHEMISTRY METHOD 05/11/2025 3:49 PM [facility] LAB AST (SGOT) 17 10 - 42 unit/L LAB CHEMISTRY METHOD 05/11/2025 3:49 PM [facility] LAB ALT (SGPT) 26 10 - 60 unit/L LAB CHEMISTRY METHOD 05/11/2025 3:49 PM [facility] LAB Alkaline Phosphatase 59 42 - 121 unit/L LAB CHEMISTRY METHOD 05/11/2025 3:49 PM [facility] Total Protein 6.5 6.0 - 8.0 g/dL LAB CHEMISTRY METHOD 05/11/2025 3:49 PM [facility] LAB Albumin 3.7 3.2 - 5.0 g/dL LAB CHEMISTRY METHOD 05/11/2025 3:49 PM [facility] LAB Total Bilirubin 0.5 0.0 - 1.4 mg/dL LAB CHEMISTR[facility] Blood Venous blood specimen / Unknown Venipuncture / Unknown 05/11/2025 9:12 AM EDT 05/11/2025 9:12 AM EDT us Liana OCHOA LAB BLOOD ORDERABLES Final R esult [facility] [address] [place] [address], [place] [phone] * (ABNORMAL) Lipid panel with reflex to direct LDL (03/24/2025 7:42 AM EDT) Cholesterol 197 0 - 200 mg/dL LAB CHEMISTRY METHOD 03/24/2025 10:12 AM [facility] Triglycerides 75 0 - 150 mg/dL LAB CHEMISTRY METHOD 03/24/2025 10:12 AM [facility] LAB HDL 53 >=40 mg/dL LAB CHEMISTRY METHOD 03/24/2025 10:12 AM [facility] LDL Calculated 129(H) 0 - 100 mg/dL LAB CHEMISTRY METHOD 03/24/2025 10:12 AM [facility] VLDL Cholesterol Rick 15 mg/dL LAB CHEMISTRY METHOD 03/24/2025 10:12 AM [facility] LAB Non HDL Chol. (LDL+VLDL) 144 <145 mg/dL LAB CHEMISTRY METHOD 03/24/2025 10:12 AM [facility] Chol/HDL Ratio 3.7 0.0 - 4.4 LAB CHEMISTRY METHOD 03/24/2025 10:12 AM [facility] Blood Venous blood specimen / Unknown Venipuncture / Unknown 03/24/2025 7:42 AM EDT 03/24/2025 8:49 AM EDT us Chavez Vasquez MD LAB BLOOD ORDERABLES Final Result [facility] H[facility]PITAL LAB [address] [place] [address], * [facility] SCREENING DIGITAL (01/22/2024 4:07 PM EST) Anatomical Region Laterality Modality Mammography 01/22/2024 12:5 0 PM EST Narrative 01/22/2024 4:07 PM EST [facility] Diagnostic Imaging Department [address] [place] [address] Patient: MITZI BOB /Age/Sex: 1965 - 58 - F Unit#: [id number] Location/Status: [facility] Mnemonic/Ordering Site: [facility] Ordering Physician: MCKENNA ODELL MD [facility] Screening Digital - 01/22/24 - 1308 Report Status:Signed EXAM: [facility] Screening Digital EXAM DATE AND TIME: 01/22/2024 1:08 PM HISTORY: Screening. COMPARISON: 01/19/23, 12/16/21, 12/13/20, 11/28/19 TECHNIQUE: Bilateral digital breast tomosynthesis was performed in the CC and MLO projections. Computer aided detection with [employer] 3D 3.1 was employed. TISSUE DENSITY: b. There are scattered areas of fibroglandular density. FINDINGS: No suspicious masses, grouped microcalcifications, or areas of architectural distortion are seen. There are rare benign calcifications. The skin and vascularity are unremarkable. IMPRESSION: Stable mammographic appearance of the breasts. No evidence of malignancy is seen. A negative mammogram in the presence of a clinically suspicious palpable abnormality does not preclude the possibility of malignancy or alter the indications for biopsy. BI-RADS: Category 2: Benign RECOMMENDATION(S): 1: Routine screening mammogram BILATERAL in 1 year. Dictating Physician: AMERICA RIBERA MD Electronically Signed by: AMERICA RIBERA MD Dic Date/Time: 01/22/241606 Sign date/Time: 01/22/241606 Procedure Note America Ribera MD - 07/11/2024 [facility] Diagnostic Imaging Department [address] [place] [address] Patient: MITZI BOB /Age/Sex: 1965 - 58 - F Unit#: [id number] Location/Status: [facility] Mnemonic/Ordering Site: [facility] Ordering Physician: MCKENNA ODELL MD [facility] Screening Digital - 01/22/24 - 1308 Report Status:Signed EXAM: [facility] Screening Digital EXAM DATE AND TIME: 01/22/2024 1:08 PM HISTORY: Screening. COMPARISON: 01/19/23, 12/16/21, 12/13/20, 11/28/19 TECHNIQUE: Bilateral digital breast tomosynthesis was performed in the CCand MLO projections. Computer aided detection with [employer] 3D 3.1was employed. TISSUE DENSITY: b. There are scattered areas of fibroglandular density. FINDINGS: No suspicious masses, grouped microcalcifications, or areas ofarchitectural distortion are seen. There are rare benign calcifications. The skin and vascularity are unremarkable. IMPRESSION: Stable mammographic appearance of the breasts. No evidence of malignancyis seen. A negative mammogram in the presence of a clinically suspicious palpable abnormality does not preclude the possibility of malignancy or alter the indications for biopsy. BI-RADS: Category 2: Benign RECOMMENDATION(S): 1: Routine screening mammogram BILATERAL in 1 year. Dictating Physician: AMERICA RIBERA MD Electronically Signed by: AMERICA RIBERA MD Dic Date/Time: 01/22/24 1607 Sign date/Time: 01/22/24 1607 Result [facility] Mckenna White MD IMG BI PROCEDURES Final R esult * HIV Screening (09/27/2019) Pathologist [facility] [place] HIV Screening ABSTRACTED Result [facility] Provider HEALTH MAINTENANCE Final Result * Hepatitis C Screening (09/27/2019) Hepatitis C Screening ABSTRACTED [facility] Provider HEALTH MAINTENANCE Final Result * Colonoscopy (05/31/2018) Pathologist [facility] Colonoscopy no interpretation , abstracted Anatomical Region Laterality Modality Other Historical Provider HEALTH MAINTENANCE Final Result from Last 3 Months or Most Recently Relevant to Health Maintenance [place] [address] Care Teams Software Architect Relationship Specialty Start Date End Date Chavez Vasquez MD [address] [place] [address] PCP - General Internal Medicine 10/25/24
== END 2025-06-12 15:44 | disposition home or self-care (01) ==
LOC: HO.HSMS 14:31
PROVIDERS: PCP Internal Medicine; Visit Provider Nurse Practitioner Family
DX: G44.89 Other headache syndrome (principal); R42 Dizziness and giddiness; R90.89 Other abnormal findings on diagnostic imaging of central nervous system
CPT/HCPCS: 99214

== ENCOUNTER → 2025-06-12 14:31 | Outpatient (BNVA) | payer OTHER, SELFPAY | PROVIDERS: PCP Internal Medicine; Visit Provider Nurse Practitioner Family | DX: R42 Dizziness and giddiness (principal); G44.89 Other headache syndrome; R90.89 Other abnormal findings on diagnostic imaging of central nervous system | CPT/HCPCS: 99212 ==

== ENCOUNTER → 2025-06-28 07:49 | Outpatient (BNV) | payer OTHER, SELFPAY | PROVIDERS: PCP Internal Medicine; Visit Provider Radiology Diagnostic Radiology | DX: R90.89 Other abnormal findings on diagnostic imaging of central nervous system (principal) | CPT/HCPCS: 70553 ==

== ENCOUNTER 2025-06-28 07:59 | Outpatient (REF) | payer OTHER, SELFPAY ==
--- NOTE | ~2025-06-28 | MR_ITS ---
CLINICAL HISTORY: R90.89 - Other abnormal findings on diagnostic imaging of central nervou... 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 No intra-axial hemorrhage. Stable septated cystic focus within the right anterior temporal lobe measuring 10 mm with mild surrounding FLAIR signal elevation. No abnormal intracranial enhancement. No midline shift. No hydrocephalus. Vascular flow voids are intact. Orbital contents are unremarkable. The sinuses and mastoid air cells are clear. No focal bone lesion. IMPRESSION: 1. Stable right temporal lobe cystic focus. 2. No acute process. No recent infarct. This document has been electronically signed by: Crispin Frank MD on 06/28/2025 14:46:01
--- OUTSIDE RECORDS SUMMARY | 2025-06-28 08:01 | XMS_ITS ---
Author Name [facility] Organization Unknown Care Team Organization Name Specialty Phone Email Start Date End Da te [facility] Mckenna Kilpatrick Primary Care 05/01/2023 07/11/[address] [facility] Lisseth Ballesteros Primary Care 09/30/2022
--- OUTSIDE RECORDS SUMMARY | 2025-06-28 08:01 | XMS_ITS | Patient Health Record ---
Author Organization [facility] Address [address] [place] [address] Care Team Providers Care Oyster Buyer Name Role Phone PITER HELTON MD Primary [...] Status Risk Notes Problem Osteoarthritis of knee (073507703) Bilateral primary osteoarthritis of knee (M17.0) Active confirmed Problem Primary osteoarthritis (601183175) Unilateral primary osteoarthritis, right knee (M17.11) Active confirmed Problem Osteoarthritis of knee (398961211) Unilateral primary osteoarthritis, left knee (M17.12) Active confirmed Problem Lumbosacral spondylosis without myelopathy (53219900) Spondylosis without myelopathy or radiculopathy, lumbar region (M47.816) Active confirmed Plan Of Treatment No Information Insurance Providers Payer Name Payer Address Payer Phone Subscriber Number Group Number Insured Name Patient Relationship to Insured Coverage Start Date Coverage End Date [facility] [address] [address] [place] [address] [id number] GRACY BOB Self - patient is the [...]
--- OUTSIDE RECORDS SUMMARY | 2025-06-28 08:01 | XMS_ITS | Clinical Summary ---
Author Organization [facility] Address [address] [place] [address] Care Team Providers Care Reservoir Engineering Consultant Name Role Phone Unavailable Primary Care Provider Unavailabl e Source Comments PLEASE NOTE, if this patient is a minor, it may be UNLAWFUL to discuss sensitive information that is contained in these records (such as FAMILY PLANNING, MENTAL HEALTH or SUBSTANCE ABUSE) with the minor patient's parent or other person without the patient's specific authorization.[facility] Encounters Date Type Department Care Team Description 06/23/2025 11:00 AM EDT Office Visit [facility] [address] [place] [address] Sebas Mcintyre DDS from Last 3 Months Social History Tobacco Use Types Packs/Day Years Used Date Smoking Tobacco: Never Assessed Comments Unknown Sex and Gender Information Value Date Recorded Sex Assigned at Not on file Legal Sex Female 10:16 AM PDT Gender Identity Not on file Sexual Orientation Not on file Plan of Treatment Upcoming Encounters Date Type Department Care Team (Late st Contact Info) Description 07/03/2025 1:00 PM EDT Office Visit [facility] [address] [place] [address] Layton Martell, [facility] [address] [place] [address] Health Maintenance Due Date Last Done Comments Anxiety Screening 1965 HPV Screening 1965 Hepatitis C Screening 1965 Pap + HPV 1965 Tobacco Screening 1965 Hypertension Screening (#1) 1985 Imm-Hepatitis B (1 of 3 - 19 + 3-dose series) 1986 Cervical Cancer Screening 1988 Pap Smear 1988 Breast Cancer Screening (Mammogram) 2007 CT Colonography 2012 Colonoscopy 2012 Colorectal Cancer Screening 2012 FIT/gFOBT 2012 Fecal DNA 2012 Flexible Sigmoidoscopy 2012 Imm-Pneumococcal 50+ (1 of 1 - PCV) 2017 Imm-Zoster, Recombinant (1 of 2) 2017 Imm-DTaP/Tdap/Td (2 - Td or Tdap) 03/16/2022 012 [id number] (1 - season) 2024 Alcohol and Drug Screen 11/23/2024 Depression Annual Screen 11/23/2024 Imm-Influenza (#1) 2025 10/20/2022, 0 07/31/2020, 09/27/2019, Additional history exists Diabetes Screening 05/11/2028 05/11/2025, 1 01/03/2024, 12/03/2020 Lipid Screening 03/24/2030 03/24/2025 HIV Screening Completed 09/27/2019 Cervical Ablation/Cold-Knife Conization Discontinued Cervical Cryotherapy Discontinued Colposcopy Discontinued Endometrial Biopsy Discontinued Excision/Leep Discontinued HPV Genotyping Discontinued Vaginal Pap Discontinued Vulvoscopy Discontinued Procedures Procedure Name Priority Date/Time Associated Diagnosis Comments CASE PRESENTATION SUBS DTL & EXTENSIVE TX PLN Routine 06/23/2025 11:00 AM EDT Encounter for dental examination 11 PALLIATIVE TREATMENT OF DENTAL PAIN - PER VISIT Routine 06/23/2025 11:00 AM EDT Pain, dental LIMITED ORAL EVALUATION - PROBLEM FOCUSED Routine 06/23/2025 11:00 AM EDT Pain, dental 9,10 RESIN RPD - WISDOM (NON BILLABLE) Routine 06/23/2025 12:00 AM EDT from Last 3 Months [place]
--- OUTSIDE RECORDS SUMMARY | 2025-06-28 08:01 | XMS_ITS | Clinical Summary ---
Author Organization [address] [place] [address] Address [address] [place] [address] Phone Care Team Providers Care Application Counselor Name Role Phone Chavez Vasquez MD Primary Care Provider [phone] Allergies Active Allergy Reactions Criticality Noted Date Comments Oxycodone-Acetaminophen 07/01/2019 Penicillins Itching,Rash 03/29/2019 Pentoxifylline Nausea And Vomiting 05/15/2019 Medications nystatin (MYCOSTATIN) 100,000 unit/gram powder Apply under pannus twice daily as needed to prevent rash 08/25/2023 Active amitriptyline (ELAVIL) 25 mg tablet 04/17/2021 Active ARIPiprazole (ABILIFY) 20 mg tablet TK 1 T PO ONCE A DAY 03/13/2019 Active lamoTRIgine (LaMICtal) 150 mg tablet TAKE 1 TABLET PO BID 01/18/2019 Active zolpidem (AMBIEN) 10 mg tablet Take 1 tablet (10 mg total) by mouth at bedtime as needed for sleep. Active tirzepatide, weight loss, (Zepbound) 10 mg/0.5 mL injection Inject 0.5 mL (10 mg total) under the skin every 7 (seven) days. 2 mL 05/11/2025 Active ergocalciferol (VITAMIN D-2) 1,250 mcg (50,000 unit) capsule Take 1 capsule (50,000 Units total) by mouth 1 (one) time per week. 4 each 2 05/12/2025 5 Active levothyroxine (SYNTHROID, LEVOTHROID) 75 mcg tablet Take 1 tablet (75 mcg total) by mouth 1 (one) time each day. 30 tablet 4 05/15/2025 Active B complex tablet Take 1 tablet by mouth 1 (one) time each day. 30 tablet 11 05/19/2025 6 Active Active Problems Problem Noted Date Diagnosed [...] I discussed the CT findings with surgical PAGertrude. As patient has normal bowel function, no concern for SBO or ileus at this time. She is scheduled for post-op follow-up with Dr. Santacruz on Thursday02/16/23, instructed patient to keep this appointment. She also has follow-up scheduled with general surgery. All questions answered. Hyperlipidemia 08/01/2020 Hypothyroidism 03/02/2020 Varicose veins with pain 08/12/2019 Peripheral polyneuropathy 08/08/2019 Peripheral vascular disease ([facility] V24) 2018 Bipolar affective disorder ([facility] V24, [facility] V28) 04/13/2019 GERD (gastroesophageal reflux disease) 9 THERESE (obstructive sleep apnea) 04/13/2019 Overview (09/02/2024): 2017 chose against CPAP Urinary incontinence 04/13/2019 Varicose vein of leg 04/13/2019 Arthritis 03/29/2019 Fibromyalgia 03/29/2019 Encounters Date Type Department Care Team Description 05/11/2025 9:15 AM EDT Lab Draw Station - [address] [phone] 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; Hypothyroidism, unspecified type; Class 1 obesity due to excess calories with serious comorbidity and body mass index (BMI) of 30.0 to 30.9 in adult; Bariatric surgery status 05/11/2025 8:45 AM EDT Office Visit Bariatric Surgery - [address] [phone] Liana Villegas PA Class 1 obesity due to excess calories with serious comorbidity and body mass index (BMI) of 30.0 to 30.9 in adult (Primary Dx); Bariatric surgery status 05/03/2025 Telephone Bariatric Surgery - [address] [phone] Jenn Boucher MD Med Refill (Zepbound) 04/05/2025 Telephone Bariatric Surgery - [address] [phone] Liana Villegas PA Med Refill (Zepbound w/titration ) 03/28/2025 9:30 AM EDT Office Visit Adult Medicine [address] [phone] Chavez Vasquez MD Hyperlipidemia, unspecified hyperlipidemia type [...] removed OTHER SURGICAL HISTORY 03/2013 Right PROCEDURE: [place] ARTHRS KNE SURG W/MENISCECTOMY MED/LAT W/SHVG HAND SURGERY 2016 Left PROCEDURE: HISTORICAL HAND SURGERY; COMMENT: glomus tumor resection of thumb OTHER SURGICAL HISTORY 04/26/2021 PROCEDURE: HISTORY OTHER; COMMENT: Sleeve gastrectomy OTHER SURGICAL HISTORY N/A PROCEDURE: [place] EGD FLX TRNSORL W/DPLMNT NTRGSTR BARIATRIC BALO; COMMENT: 2020 BOWEL RESECTION 2022 PROCEDURE: HISTORICAL BOWEL RESECTION; COMMENT: small bowel resection OOPHORECTOMY 2022 PROCEDURE: [place] OOPHORECTOMY PARTIAL/TOTAL UNI/BI; COMMENT: left Medical History Medical History Date Comments Fibromyalgia DX:Fibromyalgia Arthritis DX:Arthritis Bipolar affective disorder ( CMS/HCC V24, CMS/HCC V28) 04/13/2019 DX:Bipolar affective disorde r ([facility]) History of abnormal cervical Pap smear 03/29/2019 DX:History of abnormal cervical Pap smear GERD (gastroesophageal reflux disease) 04/13/2019 DX:GERD (gastroesophageal reflux disease) Morbid obesity with BMI of 4 0.0-44.9, adult ([facility]/HCC V24, CMS/HCC V28) 04/13/2019 DX:Morbid obesity wit h BMI of 40.0-44.9, adult ([facility]) Varicose vein of leg 04/13/2019 DX:Varicose vein of leg Urinary incontinence 04/13/2019 DX:Urinary incontinence THERESE (obstructive sleep apnea) 04/13/2019 DX :THERESE (obstructive sleep apnea); COMMENT: 2016 chose against CPAP COVID-19 virus detected 04/13/2020 DX:COVID -19 virus detected; COMMENT: Tested at [facility] Hyperlipidemia LDL goal <160 08/01/2020 DX: Hyperlipidemia [...] 9:30 AM EDT Office Visit Adult Medicine [facility] [address] [place], [place] [phone] Chavez Vasquez MD [address] [place], [place] 07/13/2025 8:45 AM EDT Office Visit Orthopedic Surgery - [place] [address] [phone] [address] D[facility] [address] [address] 08/08/2025 11:15 AM EDT Office Visit Bariatric Surgery [facility] [address] [phone] Liana Villegas PA [address] [address] 08/31/2025 10:00 AM EDT Office Visit Endocrinology [address] [phone] Marysol Steinberg MD [address] [place] [phone] Health Maintenance Due Date Last Done Comments [...] Depression Screening 11/23/2024 Influenza Vaccine (#1) 2025 3, 10/20/2022, 09/17/2021, Additional history exists Breast Cancer Screening 01/21/2026 01/22/20 24, 01/19/2023, 12/16/2021, Additional history exists Colorectal Cancer [...] AM EDT 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 LIPID PANEL WITH REFLEX TO DIRECT LDL Routine 03/24/2025 7:42 AM EDT Subclinical hypothyroidism [facility] SCREENING DIGITAL Routine 01/22/2024 4:07 PM EST Encounter for screening mammogram for malignant neoplasm of breast HEPATITIS C SCREENING Routine 09/27/2019 HIV SCREENING Routine 09/27/2019 COLONOSCOPY Routine 05/31/2018 from Last 3 Months or Most Recently Relevant to Health Maintenance Results * (ABNORMAL) Thyroid stimulating hormone with reflex to free t4 and free t3 (05/11/2025 9:12 AM EDT) TSH 4.78(H) 0.40 - 4.00 mcIU/mL LAB CHEMISTRY METHOD 05/11/2025 3:52 PM EDT [facility] Blood Venous blood specimen / Unknown Venipuncture / Unknown 05/11/2025 9:12 AM EDT 05/11/2025 9:12 AM EDT us Chavez Vasquez MD LAB BLOOD ORDERABLES Final Result [facility] [address] [place] [address], [place] [phone] * Free thyroxine with reflex to free triiodothyronine (05/11/2025 9:12 AM EDT) [facility] Free T4 1.35 0.70 - 1.80 ng/dL LAB CHEMISTRY METHOD 05/11/2025 4:33 PM EDT [facility] Blood Venous blood specimen / Unknown Venipuncture / Unknown 05/11/2025 9:12 AM EDT 05/11/2025 9:12 AM EDT Chavez Vasquez MD LAB BLOOD ORDERABLES Final Result Performing Organization Address [facility]/ZIP Co de Phone Number [facility] [address] [place] [address], * Iron and TIBC (05/11/2025 9:12 AM EDT) [facility] Iron 41 40 - 150 mcg/dL LAB CHEMISTRY METHOD 05/11/2025 3:49 PM EDT [facility] TIBC 252 250 - 450 mcg/dL LAB CHEMISTRY METHOD 05/11/2025 3:49 PM EDT [facility] Iron Saturation 16 15 - 50 % LAB CHEMISTRY METHOD 05/11/2025 3:49 PM EDT [facility] Blood Venous blood specimen / Unknown Venipuncture / Unknown 05/11/2025 9:12 AM EDT 05/11/2025 9:12 AM EDT Liana OCHOA LAB BLOOD ORDERABLES Final R esult [facility] [address] [place] [address], [place] [phone] * Zinc (05/11/2025 9:12 AM EDT) [facility] Zinc 75 60 - 130 ug/dL 05/15/2025 1:18 PM EDT [facility] Comment: Elevated results may be due to sample collected in a non-certified trace element-free tube. This test was developed and the performance characteristics determined by [facility]. It has not been cleared or approved by the FDA. The laboratory is regulated under CLIA as qualified to perform high-complexity testing. This test is used for patient testing purposes. It should not be regarded as investigational or for research. Test performed at [facility], [address] , [place] [address] Jinny Mckeon MD, PhD - Vice President Quality Blood Venous blood specimen / Unknown Venipuncture / Unknown 05/11/2025 9:12 AM EDT 05/11/2025 9:12 AM EDT Liana OCHOA LAB BLOOD ORDERABLES Final R esult [facility] [address] [place] [address] * Selenium serum (05/11/2025 9:12 AM EDT) Selenium 132 63 - 160 mcg/L 05/14/2025 11:19 PM EDT [facility] Comment: This test was developed and its analytical performance characteristics have been determined by [facility] [place] [place]. It has not been cleared or approved by the U.S. Food and Drug Administration. This assay has been validated pursuant to the CLIA regulations and is used for clinical purposes. Test Performed by [employer], [facility] [place], [address] [place] [address] Esau Vail M.D., Ph.D., Director of Laboratories , CLIA [id number] Blood Venous blood specimen / Unknown Venipuncture / Unknown 05/11/2025 9:12 AM EDT 05/11/2025 9:12 AM EDT Liana OCHOA LAB BLOOD ORDERABLES Final R esult [facility] [address] [place] [address] * (ABNORMAL) Vitamin D 25 hydroxy (05/11/2025 9:12 AM EDT) Vit D, 25-Hydroxy 20.7(L) 30.0 - 80.0 ng/mL LAB CHEMISTRY METHOD 05/11/2025 3:51 PM EDT [facility] Blood Venous blood specimen / Unknown Venipuncture / Unknown 05/11/2025 9:12 AM EDT 05/11/2025 9:12 AM EDT Liana OCHOA LAB BLOOD ORDERABLES [facility] Performing Organization Address City/[facility]/ZIP Co de Phone Number [facility] [address] [place] [address], [place] [phone] * Triiodothyronine free (05/11/2025 9:12 AM EDT) T3, Free 295 230 - 420 pcg/dL LAB CHEMISTRY METHOD 05/11/2025 4:59 PM EDT [facility] Blood Venous blood specimen / Unknown Venipuncture / Unknown 05/11/2025 9:12 AM EDT 05/11/2025 9:12 AM EDT Chavez Vasquez MD LAB BLOOD ORDERABLES Final Result Performing Organization Address City/[facility]/ZIP Co de Phone Number [facility] [address] [place] [address], [place] [phone] * (ABNORMAL) Thyroid stimulating hormone (05/11/2025 9:12 AM EDT) TSH 4.78(H) 0.40 - 4.00 mcIU/mL LAB CHEMISTRY METHOD 05/11/2025 3:52 PM EDT [facility] Blood Venous blood specimen / Unknown Venipuncture / Unknown 05/11/2025 9:12 AM EDT 05/11/2025 9:12 AM EDT Marysol Steinberg MD LAB BLOOD ORDERABLES Final Res ult Performing Organization Address City/[facility]/ZIP Co de Phone Number [facility] [address] [place] [address], * (ABNORMAL) Vitamin B1 (05/11/2025 9:12 AM EDT) Vitamin B1 Whole Blood 30(L) 38 - 122 ug/L 05/17/2025 6:42 AM EDT [facility] Comment: This test was developed and the performance characteristics determined by [facility]. It has not been cleared or approved by the FDA. The laboratory is regulated under CLIA as qualified to perform high-complexity testing. This test is used for patient testing purposes. It should not be regarded as investigational or for research. Test performed at [facility], [address] , [place] [address] Jinny Mckeon MD, PhD - Vice President Quality Blood Venous blood specimen / Unknown Venipuncture / Unknown 05/11/2025 9:12 AM EDT 05/11/2025 9:12 AM EDT Liana OCHOA LAB BLOOD ORDERABLES Final R esult [facility] [address] [place] [address] * Vitamin B6 (05/11/2025 9:12 AM EDT) Vitamin B6 (Pyridoxine) Level 8 5 - 50 ug/L 05/16/2025 11:02 AM EDT [facility] Comment: This test was developed and the performance characteristics determined by [facility]. It has not been cleared or approved by the FDA. The laboratory is regulated under CLIA as qualified to perform high-complexity testing. This test is used for patient testing purposes. It should not be regarded as investigational or for research. Test performed at [facility], [address] , [place] [address] Jinny Mckeon MD, PhD - Vice President Quality Blood Venous blood specimen / Unknown Venipuncture / Unknown 05/11/2025 9:12 AM EDT 05/11/2025 9:12 AM EDT Liana OCHOA LAB BLOOD ORDERABLES Final R esult [facility] [address] [place] [address] * Folate (05/11/2025 9:12 AM EDT) Folate 10.0 2.8 - 17.0 ng/ml LAB CHEMISTRY METHOD 05/11/2025 3:49 PM EDT [facility] Blood Venous blood specimen / Unknown Venipuncture / Unknown 05/11/2025 9:12 AM EDT 05/11/2025 9:12 AM EDT us Liana OCHOA LAB BLOOD ORDERABLES Final R esult [facility] [address] [place] [address], [place] [phone] * Vitamin B12 (05/11/2025 9:12 AM EDT) Vitamin B-12 291 250 - 900 pcg/mL LAB CHEMISTRY METHOD 05/11/2025 4:26 PM EDT [facility] Comment:Results verified by repeat testing Blood Venous blood specimen / Unknown Venipuncture / Unknown 05/11/2025 9:12 AM EDT 05/11/2025 9:12 AM EDT us Liana OCHOA LAB BLOOD ORDERABLES Final R esult [facility] [address] [place] [address], * (ABNORMAL) Comprehensive metabolic panel (05/11/2025 9:12 AM EDT) Sodium 145 133 - 145 mmol/L LAB CHEMISTRY METHOD 05/11/2025 3:49 PM [facility] Potassium 3.7 3.5 - 5.5 mmol/L LAB CHEMISTRY METHOD 05/11/2025 3:49 PM [facility] Chloride 112(H) 96 - 110 mmol/L LAB CHEMISTRY METHOD 05/11/2025 3:49 PM [facility] CO2 26 21 - 32 mmol/L LAB CHEMISTRY METHOD 05/11/2025 3:49 PM [facility] Anion Gap 7 3 - 11 LAB CHEMISTRY METHOD 05/11/2025 3:49 PM [facility] Glucose 78 70 - 100 mg/dL LAB CHEMISTRY METHOD 05/11/2025 3:49 PM [facility] BUN 15 5 - 25 mg/dL LAB CHEMISTRY METHOD 05/11/2025 3:49 PM [facility] Creatinine 0.61 0.50 - 1.10 mg/dL LAB CHEMISTRY METHOD 05/11/2025 3:49 PM [facility] eGFR 104 >=60 mL/min/1. 73m2 LAB CHEMISTRY METHOD 05/11/2025 3:49 PM [facility] Comment:Calculation based on the Chronic Kidney Disease Epidemiology Collaboration (CKD-EPI) equation refit without adjustment for race. BUN/Creatinine Ratio 24.6 LAB CHEMISTRY METHOD 05/11/2025 3:49 PM [facility] Calcium 9.0 8.5 - 10.5 mg/dL LAB CHEMISTRY METHOD 05/11/2025 3:49 PM EDT [facility] AST (SGOT) 17 10 - 42 unit/L LAB CHEMISTRY METHOD 05/11/2025 3:49 PM T [facility] ALT (SGPT) 26 10 - 60 unit/L LAB CHEMISTRY METHOD 05/11/2025 3:49 PM EDT [facility] Alkaline Phosphatase 59 42 - 121 unit/L LAB CHEMISTRY METHOD 05/11/2025 3:49 PM EDT [facility] Total Protein 6.5 6.0 - 8.0 g/dL LAB CHEMISTRY METHOD 05/11/2025 3:49 PM [facility] Albumin 3.7 3.2 - 5.0 g/dL LAB CHEMISTRY METHOD 05/11/2025 3:49 PM [facility] Total Bilirubin 0.5 0.0 - 1.4 mg/dL LAB CHEMISTRY METHOD 05/11/2025 3:49 PM T [facility] Blood Venous blood specimen / Unknown Venipuncture / Unknown 05/11/2025 9:12 AM EDT 05/11/2025 9:12 AM EDT Liana OCHOA LAB BLOOD ORDERABLES Final R esult [facility] [address] [place] [address], * (ABNORMAL) Lipid panel with reflex to direct LDL (03/24/2025 7:42 AM EDT) Cholesterol 197 0 - 200 mg/dL LAB CHEMISTRY METHOD 03/24/2025 10:12 AM T [facility] Triglycerides 75 0 - 150 mg/dL LAB CHEMISTRY METHOD 03/24/2025 10:12 AM [facility] HDL 53 >=40 mg/dL LAB CHEMISTRY METHOD 03/24/2025 10:12 AM EDT [facility] LDL Calculated 129(H) 0 - 100 mg/dL LAB CHEMISTRY METHOD 03/24/2025 10:12 AM EDT [facility] VLDL Cholesterol Rick 15 mg/dL LAB CHEMISTRY METHOD 03/24/2025 10:12 AM EDT [facility] Non HDL Chol. (LDL+VLDL) 144 <145 mg/dL LAB CHEMISTRY METHOD 03/24/2025 10:12 AM EDT [facility] Chol/HDL Ratio 3.7 0.0 - 4.4 LAB CHEMISTRY METHOD 03/24/2025 10:12 AM EDT [facility] Blood Venous blood specimen / Unknown Venipuncture / Unknown 03/24/2025 7:42 AM EDT 03/24/2025 8:49 AM EDT us Chavez Vasquez MD LAB BLOOD ORDERABLES Final Result [facility] [address] [place] [address], * GARETH SCREENING DIGITAL (01/22/2024 4:07 PM EST) Anatomical Region Laterality Modality Mammography 01/22/2024 12:5 0 PM EST Narrative 01/22/2024 4:07 PM EST [facility] Diagnostic Imaging Department [address] [place] [address] Patient: MITZI BOB /Age/Sex: 1965 - 58 - F Unit#: [id number] Location/Status: SPDIMAM/REG CLI Mnemonic/Ordering Site: DIGSC/SPMAM Ordering Physician: MCKENNA ODELL MD Gareth Screening Digital - 01/22/24 - 1308 Report Status:Signed EXAM: [facility] Screening Digital EXAM DATE AND TIME: 01/22/2024 1:08 PM HISTORY: Screening. COMPARISON: 01/19/23, 12/16/21, 12/13/20, 11/28/19 TECHNIQUE: Bilateral digital breast tomosynthesis was performed in the CC and MLO projections. Computer aided detection with Active-Semi 3D 3.1 was employed. TISSUE DENSITY: b. [...] Dic Date/Time: 01/22/24 1607 Sign date/Time: 01/22/24 160 Procedure Note America Ribera MD - 07/11/2024 [facility] Diagnostic Imaging Department [address] [place] [id number] Patient: MITZI BOB./Age/Sex: 1965 - 58 - F Unit#: [id number] Location/Status: SPDIMAM/REG CLI Mnemonic/Ordering Site: [facility] Ordering Physician: MCKENNA ODELL MD Gareth Screening Digital - 01/22/24 - 1308 Report Status:Signed EXAM: Gareth Screening Digital EXAM DATE AND TIME: 01/22/2024 1:08 PM HISTORY: Screening. COMPARISON: 01/19/23, 12/16/21, 12/13/20, 11/28/19 TECHNIQUE: Bilateral digital breast tomosynthesis was performed in the CCand MLO projections. Computer aided detection with Active-Semi 3D 3.1was employed. TISSUE DENSITY: b. There [...] Date/Time: 01/22/24 1607 Sign date/Time: 01/22/24 1607 Mckenna White MD IMG BI PROCEDURES Final R esult * HIV Screening (09/27/2019) HIV Screening ABSTRACTED Historical Provider HEALTH MAINTENANCE Final Result * Hepatitis C Screening (09/27/2019) Hepatitis C Screening ABSTRACTED Historical Provider HEALTH MAINTENANCE Final Result * Colonoscopy (05/31/2018) Colonoscopy no interpretation , abstracted Anatomical Region Laterality Modality Other Historical Provider HEALTH MAINTENANCE Final Result from Last 3 Months or Most Recently Relevant to Health Maintenance Insurance [employer] Care Teams Application Counselor Relationship Specialty Start Date End Date Chavez Vasquez MD [address] [place] [address] PCP - General Internal Medicine 10/25/24
--- OUTSIDE RECORDS SUMMARY | 2025-06-28 08:01 | XMS_ITS | Clinical Summary ---
Author Organization [facility] Address [address] [place] [phone] Phone Care Team Providers Care It Infrastructure Manager Name Role Phone Unknown, Unknown Primary Care [...] topic Medical Devices Not on file Insurance [employer] [address] [place], [place] [address] [facility] [employer] Care Teams It Infrastructure Manager Relationship Specialty Start Date End Date Unknown, Unknown, PCP - General 02/23/24 Additional Source Comments The information contained in this document represents components of the legal health record. It is not the complete legal health record.[facility]
== END 2025-06-28 08:00 | disposition home or self-care (01) ==
LOC: HO.MRI 07:59
PROVIDERS: PCP Internal Medicine; Visit Provider Internal Medicine
DX: R90.89 Other abnormal findings on diagnostic imaging of central nervous system (principal); R51.9 Headache, unspecified; H53.8 Other visual disturbances
CPT/HCPCS: 70553; A9585